=== PATIENT | female | born 1985 | race African-American/Black ===

== ENCOUNTER 2016-07-04 09:46 | Inpatient (IN) | payer MEDICAID, OTHER ==
[~2016-07-04] VITALS: Ht 160 cm; Wt 71.6 kg
[~2016-07-04 09:46] MED LIST: CEPH-460 PO
[2016-07-04 09:48] VITALS: BP 132/90; PULSE 74; RESP 16; TEMP 97.7; O2SAT 100
[2016-07-04 10:53] VITALS: O2SAT 100
[2016-07-04 11:04] LABS: AUTOMATED NEUTROPHIL # 4.5 TH/MM3 (1.8-7.7); BASOPHIL % 0.5 % (0.0-2.0); EOSINOPHIL % 0.6 % (0.0-4.0); HEMO FLAGS DIFF FINAL; LYMPH % 24.5 % (9.0-44.0); LYMPHOCYTE # 1.7 TH/MM3 (1.0-4.8); MEAN CELL VOLUME 90.4 FL (80.0-100.0); MEAN CORPUSCULAR HGB CONC 34.3 % (32.0-36.0); MONO % 8.6 % (0.0-8.0); NEUT % 65.8 % (16.0-70.0); PLATELET COUNT 205 TH/MM3 (150-450); RED BLOOD COUNT 3.98 MIL/MM3 (4.00-5.30); RED CELL DISTRIBUTION WIDTH 13.6 % (11.6-17.2); WHITE BLOOD COUNT 6.8 TH/MM3 (4.0-11.0)
[2016-07-04 11:09] LABS: BLOOD, URINE MOD (NEG); CALCIUM OXALATE CRYSTALS,URINE RARE /hpf; COMMENT (UR) CULT NOT INDICATED; CULTURE IF INDICATED CULT NOT INDICATED; GLUCOSE,URINE NEG (NEG); KETONE, URINE NEG (NEG); MUCUS URINE MOD /lpf (OCC); NITRITE,URINE NEG (NEG); PH, URINE 6.5 (5.0-8.5); SQUAMOUS EPITHELIAL CELL URINE 2 /hpf (0-5); URINE COLOR YELLOW (YELLW/STRAW)
--- NOTE | 2016-07-04 11:09 | PD ---
HPI Chief Complaint: Abdominal Pain Time Seen by Provider: 10:33 Travel History International Travel<30 days: No Contact w/Intl Traveler<30days: No Traveled to known affect area: No History of Present Illness HPI 30-year-old female complains of abdominal pain. Patient states that the pain started a week ago. Patient states the pain cramping pain diffuse over the abdomen worse on left upper quadrant of the abdomen. Patient denies any pain radiation. Patient denies any nausea vomiting diarrhea. Patient has history of recurrent pancreatitis. Patient denies any headache. Patient denies any chest pain or shortness of breath. Patient denies any dysuria or frequency. Patient denies any fever chills. PFSH Past Medical History Hx Anticoagulant Therapy: No Cancer: No Cardiovascular Problems: No Chemotherapy: No Cerebrovascular Accident: No Diabetes: No Diminished Hearing: No Endocrine: No Gastrointestinal Disorders: No GERD: Yes Genitourinary: No Immune Disorder: No Musculoskeletal: No Neurologic: No Psychiatric: No Reproductive: No Respiratory: No Migraines: Yes Pancreatitis: Yes Tetanus Vaccination: < 5 Years Influenza Vaccination: No ?: Unknown LMP: spotting a few weeks ago : 2 Para: 2 Miscarriage: 0 Past Surgical History Section: Yes (x1) Gynecologic Surgery: Yes (LEEP/cervical biopsy) Hysterectomy: No Other Surgery: No Social History Alcohol Use: No Tobacco Use: No Substance Use: No Allergies-Medications (Allergen,Severity, Reaction): Coded Allergies: No Known Allergies (Unverified , 07/04/16) Reported Meds & Prescriptions Reported Meds & Active Scripts Active No Active Prescriptions or Reported Medications Review of Systems General / Constitutional: No: Fever Eyes: No: Visual changes HENT: No: Headaches Cardiovascular: No: Chest Pain or Discomfort Respiratory: No: Shortness of Breath Gastrointestinal: Positive: Abdominal Pain Genitourinary: No: Dysuria Musculoskeletal: No: Pain Skin: No Rash Neurologic: No: Weakness Psychiatric: No: Depression Endocrine: No: Polydipsia Hematologic/Lymphatic: No: Easy Bruising Physical Exam Narrative GENERAL: Well-nourished, well-developed patient. SKIN: Warm and dry. HEAD: Normocephalic. EYES: No scleral icterus. No injection or drainage. NECK: Supple, trachea midline. No JVD or lymphadenopathy. CARDIOVASCULAR: Regular rate and rhythm without murmurs, gallops, or rubs. RESPIRATORY: Breath sounds equal bilaterally. No accessory muscle use. GASTROINTESTINAL: Abdomen soft, nondistended. Patient has mild diffuse tenderness over the abdomen and epigastric area. No rebound tenderness. No mass. MUSCULOSKELETAL: No cyanosis, or edema. BACK: Nontender without obvious deformity. No CVA tenderness. Neurologic exam normal. Data Data Last Documented VS Vital Signs Date Time Temp Pulse Resp B/P Pulse Ox O2 Delivery O2 Flow Rate FiO2 07/04/16 12:59 71 15 117/74 100 Room Air 07/04/16 09:48 97.7 Orders Complete Blood Count With Diff (07/04/16 10:44) Comprehensive Metabolic Panel (07/04/16 10:44) Lipase (07/04/16 10:44) Urinalysis - C+S If Indicated (07/04/16 10:44) Iv Access Insert/Monitor (07/04/16 10:44) Ecg Monitoring (07/04/16 10:44) Oximetry (07/04/16 10:44) Ed Urine Pregnancytest Poc (07/04/16 10:44) Ct Abd/Pel W Iv Contrast(Rout) (07/04/16 11:07) Pantoprazole Inj (Protonix Inj) (07/04/16 11:15) Sodium Chlor 0.9% 1000 Ml Inj (Ns 1000 M (07/04/16 11:15) Iohexol 350 Inj (Omnipaque 350 Inj) (07/04/16 12:16) Labs Laboratory Tests Test 07/04/16 10:50 White Blood Count 6.8 TH/MM3 Red Blood Count 3.98 MIL/MM3 Hemoglobin 12.3 GM/DL Hematocrit 36.0 % Mean Corpuscular Volume 90.4 FL Mean Corpuscular Hemoglobin 31.0 PG Mean Corpuscular Hemoglobin 34.3 % Concent Red Cell Distribution Width 13.6 % Platelet Count 205 TH/MM3 Mean Platelet Volume 9.3 FL Neutrophils (%) (Auto) 65.8 % Lymphocytes (%) (Auto) 24.5 % Monocytes (%) (Auto) 8.6 % Eosinophils (%) (Auto) 0.6 % Basophils (%) (Auto) 0.5 % Neutrophils # (Auto) 4.5 TH/MM3 Lymphocytes # (Auto) 1.7 TH/MM3 Monocytes # (Auto) 0.6 TH/MM3 Eosinophils # (Auto) 0.0 TH/MM3 Basophils # (Auto) 0.0 TH/MM3 CBC Comment DIFF FINAL Differential Comment Urine Color YELLOW Urine Turbidity CLEAR Urine pH 6.5 Urine Specific [place] 1.018 Urine Protein TRACE mg/dL Urine Glucose (UA) NEG mg/dL Urine Ketones NEG mg/dL Urine Occult Blood MOD Urine Nitrite NEG Urine Bilirubin NEG Urine Urobilinogen LESS THAN 2.0 MG/DL Urine Leukocyte Esterase NEG Urine RBC 36 /hpf Urine WBC 2 /hpf Urine Squamous Epithelial 2 /hpf Cells Urine Calcium Oxalate Crystals RARE /hpf Urine Mucus MOD /lpf Microscopic Urinalysis Comment CULT NOT INDICATED Sodium Level 138 MEQ/L Potassium Level 3.3 MEQ/L Chloride Level 101 MEQ/L Carbon Dioxide Level 31.9 MEQ/L Anion Gap 5 MEQ/L Blood Urea Nitrogen 6 MG/DL Creatinine 0.87 MG/DL Estimat Glomerular Filtration 92 ML/MIN Rate Random Glucose 99 MG/DL Calcium Level 8.8 MG/DL Total Bilirubin 0.3 MG/DL Aspartate Amino Transf 26 U/L (AST/SGOT) Alanine Aminotransferase 34 U/L (ALT/SGPT) Alkaline Phosphatase 80 U/L Total Protein 8.0 GM/DL Albumin 3.8 GM/DL Lipase 541 U/L MDM Medical Decision Making Medical Screen Exam Complete: Yes Emergency Medical Condition: Yes Interpretation(s) Last Impressions Abdomen/Pelvis CT 07/04/16 1107 Signed Impressions: Service Date/Time: July 12:00 - CONCLUSION: 1. The exam demonstrates a 5.4 x 6 cm thickwalled cyst within the tail of the pancreas most consistent with pseudocyst. This has moderately increased in size compared to previous exam dated 12/23/14. 2. 2.5 cm simple cyst in the upper pole of the left in a slightly larger when compared to previous study. Javad Givens MD 14 11 PM. CBC within normal limit. Potassium 3.3. Lipase 541. UA negative. Differential Diagnosis Differential diagnosis including gastritis, PUD, pancreatitis, cholecystitis, colitis, UTI, pyelonephritis. Narrative Course 30-year-old female with abdominal pain especially left upper quadrant abdominal pain. History of recurrent pancreatitis. Diagnosis Primary Impression: Pancreatitis Qualified Code: K86.1 - Chronic pancreatitis, unspecified pancreatitis type Additional Impression: Pancreatic pseudocyst Scripts No Active Prescriptions or Reported Meds Gilmar Amaro MD Jul 04, 2016 11:09
[2016-07-04] MEDS ORDERED: SODIUM CHLOR 0.9% 1000 ML INJ 1,000 ML IV SCH (11:15)
[2016-07-04] MEDS ORDERED: PANTOPRAZOLE SODIUM 40 MG VIAL IV PUSH ONE (11:15)
[2016-07-04 11:39] LABS: ALKALINE PHOSPHATASE 80 U/L (45-117); ALT (GPT) 34 U/L (10-53); ANION GAP 5 MEQ/L (5-15); AST (GOT) 26 U/L (15-37); BICARBONATE 31.9 MEQ/L (21.0-32.0); BLOOD UREA NITROGEN 6 MG/DL (7-18); CHLORIDE 101 MEQ/L (98-107); GLOMERULAR FILTRATION RATE 92 ML/MIN (>89); POTASSIUM 3.3 MEQ/L (3.5-5.1); SODIUM (NA) 138 MEQ/L (136-145); TOTAL BILIRUBIN ADULT 0.3 MG/DL (0.2-1.0)
[2016-07-04] MEDS ORDERED: IOHEXOL 350 MG/ML 10 ML VIAL (for RAD DIAG) IV ONE (12:16)
--- NOTE | 2016-07-04 12:46 | RADRPT ---
EXAM DATE/TIME: 07/04/2016 12:00 [facility] COMPARISON: CT ABDOMEN & PELVIS W CONTRAST, December 23, 2014, 19:07. INDICATIONS : Left upper quadrant pain, history of pancreatitis IV CONTRAST: 66 cc Omnipaque 350 (iohexol) IV ORAL CONTRAST: No oral contrast ingested. RADIATION DOSE: 9.96 CTDIvol (mGy) MEDICAL HISTORY : Pancreatitis. SURGICAL HISTORY : section. ENCOUNTER: Initial ACUITY: 1 day PAIN SCALE: 6/10 LOCATION: Left upper quadrant TECHNIQUE: Volumetric scanning of the abdomen and pelvis was performed. Using automated exposure control and ad justment of the mA and/or kV according to patient size, radiation dose was kept as low as reasonably achievable to obtain optimal diagnostic quality images. FINDINGS: The limited portion of the lung base visualized is clear. As the appearance of the liver is within normal limits. The spleen is normal in appearance. Examination of the pancreas demonstrates a 5.4 x 6 cm cyst within the tail of the pancreas this is mo derately increased in size since previous dated 12/23/14. This measured 3.9 x 4.3 cm on the prior exam . This is most likely related to previous pancreatitis. The left kidney demonstrates a 2.5 cm simple cyst. It is otherwise normal in appearance. The right ki dney is unremarkable in appearance. There is no free intraperitoneal air. No free intraperitoneal fluid is identified. There is no retrop eritoneal lymphadenopathy. The aorta is normal in caliber. The visualized loops of small and large bowel are unremarkable. Imaging through the pelvis is provided. No iliac or inguinal adenopathy is seen. No free fluid is steve dent within the pelvis. The reproductive organs are intact. The visualized bony structures demonstrate mild degenerative changes but are otherwise intact. CONCLUSION: 1. The exam demonstrates a 5.4 x 6 cm thickwalled cyst within the tail of the pancreas most consisten t with pseudocyst. This has moderately increased in size compared to previous exam dated 12/23/14. 2. 2.5 cm simple cyst in the upper pole of the left in a slightly larger when compared to previous st [facility]. Javad Givens MD on July 04, 2016 at 12:38 Board Certified Radiologist. This report was verified electronically.
[2016-07-04 12:59] VITALS: BP 117/74; PULSE 71; RESP 15; O2SAT 100
[2016-07-04 15:31] VITALS: BP 115/79; PULSE 66; RESP 16; O2SAT 100
[2016-07-04 17:15] VITALS: BP 118/72; PULSE 70; RESP 15; O2SAT 100
[2016-07-04] MEDS ORDERED: HYDROmorphone HCL PF 1 MG/ML VIAL IV PUSH PRN (17:15)
--- NOTE | 2016-07-04 17:24 | HHI.HP ---
[facility] No Primary Care Physician Admission Diagnosis pancreatic pseudocyst. Abdominal pain. Diagnoses: Chief Complaint: Epigastric pain Travel History International Travel<30 Days: No Contact w/Intl Traveler <30 Da: No Traveled to Known Affected Are: No History of Present Illness Patient is a very pleasant 30-year-old female from [place] who came to the hospital because of epigastric pain radiating to the left upper quadrant for about a week now. Patient states history of the same condition be about in 2013 where on evaluation had been pancreatic cyst that [facility]. This time patient states she takes ibuprofen periodically which helped with the pain. Denies any nausea and vomiting. Past 2 days have been having increasing pain. Patient felt that this is "the cyst is getting bigger" and came to the emergency room. On evaluation with an elevated lipase and admitted for further evaluation and management. Review of Systems Constitutional: DENIES: Diaphoretic episodes, Fatigue, Fever, Weight gain, Weight loss, Chills, Dizziness, Change in appetite, Night Sweats Endocrine: DENIES: Abnorml menstrual pattern, Heat/cold intolerance, Polydipsia , Polyuria, Polyphagia Eyes: DENIES: Blurred vision, Diplopia, Eye inflammation, Eye pain, Vision loss , Photosensitivity, Double Vision Ears, nose, mouth, throat: DENIES: Tinnitus, Hearing loss, Vertigo, Nasal discharge, Oral lesions, Throat pain, Hoarseness, Ear Pain, Running Nose, Epistaxis, Sinus Pain, Toothache, Odynophagia Respiratory: DENIES: Apneas, Cough, Snoring, Wheezing, Hemoptysis, Sputum production, Shortness of breath Cardiovascular: DENIES: Chest pain, Palpitations, Syncope, Dyspnea on Exertion , PND, Lower Extremity Edema, Orthopnea, Claudication Gastrointestinal: DENIES: Abdominal pain, Black stools, Bloody stools, Constipation, Diarrhea, Nausea, Vomiting, Difficulty Swallowing, Anorexia Genitourinary: DENIES: Abnormal vaginal bleeding, Dysmenorrhea, Dyspareunia, Sexual dysfunction, Urinary frequency, Urinary incontinence, Urgency, Hematuria , Dysuria, Nocturia, Vaginal discharge Musculoskeletal: DENIES: Joint pain, Muscle aches, Stiffness, Joint Swelling, Back pain, Neck pain Integumentary: DENIES: Abnormal pigmentation, Pruritus, Rash, Nail changes, Breast masses, Breast skin changes, Nipple discharge Hematologic/lymphatic: DENIES: Bruising, Lymphadenopathy Immunologic/allergic: DENIES: Eczema, Urticaria Neurologic: DENIES: Abnormal gait, Headache, Localized weakness, Paresthesias, Seizures, Speech Problems, Tremor, Poor Balance Psychiatric: DENIES: Anxiety, Confusion, Mood changes, Depression, Hallucinations, Agitation, Suicidal Ideation, Homicidal Ideation, Delusions Past Family Social History Past Medical History History of pancreatitis with pancreatic cyst drained in 2014 Past Surgical History Cervical cone biopsy section 2 para 1(1-0-1-1) Reported Medications Ibuprofen when necessary rarely for headaches Allergies: Coded Allergies: No Known Allergies (Unverified , 07/04/16) Family History Noncontributory Social History Denies smoking alcohol or substance abuse Physical Exam Vital Signs Vital Signs Date Time Temp Pulse Resp B/P Pulse Ox O2 Delivery O2 Flow Rate FiO2 07/04/16 17:15 70 15 118/72 100 Room Air 07/04/16 15:31 66 16 115/79 100 Room Air 07/04/16 12:59 71 15 117/74 100 Room Air 07/04/16 10:53 100 Room Air 07/04/16 10:32 16 07/04/16 09:48 97.7 74 16 132/90 100 Room Air Physical Exam GENERAL: This is a well-nourished, well-developed patient, in no apparent distress. SKIN: No rashes, ecchymoses or lesions. Cool and dry. HEAD: Atraumatic. Normocephalic. No temporal or scalp tenderness. EYES: Pupils equal round and reactive. Extraocular motions intact. No scleral icterus. ENT: Nose without bleeding, Throat without erythema, Airway patent. NECK: Trachea midline. No JVD or lymphadenopathy. Supple, nontender, no meningeal signs. CARDIOVASCULAR: Regular rate and rhythm without murmurs, gallops, or rubs. RESPIRATORY: Clear to auscultation. Breath sounds equal bilaterally. No wheezes , rales, or rhonchi. GASTROINTESTINAL: Abdomen soft, tender epigastric and left upper quadrant area, soft good bowel sounds MUSCULOSKELETAL: Extremities without clubbing, cyanosis, or edema. No joint tenderness, effusion, or edema noted. No calf tenderness. Negative Homans sign bilaterally. NEUROLOGICAL: Awake and alert. Cranial nerves II through XII intact. Motor and sensory grossly within normal limits. Five out of 5 muscle strength in all muscle groups. Normal speech. Laboratory Laboratory Tests Test 07/04/16 10:50 White Blood Count 6.8 Red Blood Count 3.98 Hemoglobin 12.3 Hematocrit 36.0 Mean Corpuscular Volume 90.4 Mean Corpuscular Hemoglobin 31.0 Mean Corpuscular Hemoglobin 34.3 Concent Red Cell Distribution Width 13.6 Platelet Count 205 Mean Platelet Volume 9.3 Neutrophils (%) (Auto) 65.8 Lymphocytes (%) (Auto) 24.5 Monocytes (%) (Auto) 8.6 Eosinophils (%) (Auto) 0.6 Basophils (%) (Auto) 0.5 Neutrophils # (Auto) 4.5 Lymphocytes # (Auto) 1.7 Monocytes # (Auto) 0.6 Eosinophils # (Auto) 0.0 Basophils # (Auto) 0.0 CBC Comment DIFF FINAL Differential Comment Urine Color YELLOW Urine Turbidity CLEAR Urine pH 6.5 Urine Specific [place] 1.018 Urine Protein TRACE Urine Glucose (UA) NEG Urine Ketones NEG Urine Occult Blood MOD Urine Nitrite NEG Urine Bilirubin NEG Urine Urobilinogen LESS THAN 2.0 Urine Leukocyte Esterase NEG Urine RBC 36 Urine WBC 2 Urine Squamous Epithelial 2 Cells Urine Calcium Oxalate Crystals RARE Urine Mucus MOD Microscopic Urinalysis Comment CULT NOT INDICATED Sodium Level 138 Potassium Level 3.3 Chloride Level 101 Carbon Dioxide Level 31.9 Anion Gap 5 Blood Urea Nitrogen 6 Creatinine 0.87 Estimat Glomerular Filtration 92 Rate Random Glucose 99 Calcium Level 8.8 Total Bilirubin 0.3 Aspartate Amino Transf 26 (AST/SGOT) Alanine Aminotransferase 34 (ALT/SGPT) Alkaline Phosphatase 80 Total Protein 8.0 Albumin 3.8 Lipase 541 Result Diagram: 07/04/16 1050 07/04/16 1050 Imaging Last Impressions Abdomen/Pelvis CT 07/04/16 1107 Signed Impressions: Service Date/Time: July 12:00 - CONCLUSION: 1. The exam demonstrates a 5.4 x 6 cm thickwalled cyst within the tail of the pancreas most consistent with pseudocyst. This has moderately increased in size compared to previous exam dated 12/23/14. 2. 2.5 cm simple cyst in the upper pole of the left in a slightly larger when compared to previous study. Javad Givens MD Assessment and Plan Assessment and Plan 30-year-old female presenting with epigastric pain with no history of pancreatic pseudocyst Acute pancreatitis Keep nothing by mouth. continue on IV fluids Pancreatic cyst - recurrent compared with previous exam larger. Will consult radiology for 4 ultrasound-guided drainage of the cyst Hypokalemia. Incorporate potassium and IV fluids PPI for GI prophylaxis Discussed Condition With Patient Albina Bagley MD Jul 04, 2016 17:24
[2016-07-04] MEDS ORDERED: POTASSIUM CHLOR 10 MEQ PREMIX 100 ML IV ONE (17:30)
[2016-07-04 20:00] VITALS: BP 102/62; PULSE 60; RESP 20; TEMP 97.6; O2SAT 98
[2016-07-04] MEDS ORDERED: ACETAMINOPHEN 325 MG TAB PO ONE (22:00)
[2016-07-05] VITALS: BP 96/52; PULSE 74; RESP 20; TEMP 96.1; O2SAT 99
[2016-07-05] MEDS: D5-NS + KCL 20 MEQ INJ 1,000 ML IV SCH ×2 (01:15→11:29)
[2016-07-05 05:22] LABS: ANION GAP 8 MEQ/L (5-15); BICARBONATE 27.5 MEQ/L (21.0-32.0); BLOOD UREA NITROGEN 6 MG/DL (7-18); CHLORIDE 106 MEQ/L (98-107); GLOMERULAR FILTRATION RATE 114 ML/MIN (>89); POTASSIUM 3.5 MEQ/L (3.5-5.1); SODIUM (NA) 141 MEQ/L (136-145)
[2016-07-05 05:31] LABS: BHCG SCREEN QUALITATIVE LESS THAN 1 MIU/ML (0-5)
[2016-07-05 08:00] VITALS: BP 112/75; PULSE 72; RESP 19; TEMP 97.5; O2SAT 98
[2016-07-05 08:52] LABS: APTT (PATIENT) 26.9 SEC (24.3-30.1); INTERNATIONAL NORMALIZED RATIO 1.1 RATIO; PROTHROMBIN TIME - PATIENT 11.7 SEC (9.8-11.6)
--- NOTE | 2016-07-05 09:54 | HHI.PR ---
Subjective Remarks no abdominal pain, nausea or vomiting Objective Vitals Vital Signs Date Time Temp Pulse Resp B/P Pulse Ox O2 Delivery O2 Flow Rate FiO2 07/05/16 08:00 97.5 72 19 112/75 98 07/05/16 00:00 96.1 74 20 96/52 99 07/04/16 20:00 97.6 60 20 102/62 98 07/04/16 17:15 70 15 118/72 100 Room Air 07/04/16 15:31 66 16 115/79 100 Room Air 07/04/16 12:59 71 15 117/74 100 Room Air 07/04/16 10:53 100 Room Air 07/04/16 10:32 16 I/O 07/04/16 07/04/16 07/04/16 07/05/16 07/05/16 07/05/16 07:00 15:00 23:00 07:00 15:00 23:00 Intake Total 770 ml 1000 ml 0 ml Output Total 800 ml Balance 770 ml 200 ml 0 ml Intake Oral 0 ml 0 ml 0 ml IV Total 770 ml 1000 ml Output Urine Total 800 ml # Voids 1 # Bowel Movements 0 0 Result Diagram: 07/04/16 1050 07/05/16 0435 Imaging Last Impressions Abdomen/Pelvis CT 07/04/16 1107 Signed Impressions: Service Date/Time: July 12:00 - CONCLUSION: 1. The exam demonstrates a 5.4 x 6 cm thickwalled cyst within the tail of the pancreas most consistent with pseudocyst. This has moderately increased in size compared to previous exam dated 12/23/14. 2. 2.5 cm simple cyst in the upper pole of the left in a slightly larger when compared to previous study. Javad Givens MD Objective Remarks awake and alert, NAD anicteric lungs clear regular rhythm abdomen soft, nontender, good bowel sounds extremities no edema A/P Assessment and Plan 30-year-old female presenting with epigastric pain with no history of pancreatic pseudocyst Acute pancreatitis - lipase improved not requiring any pain meds at all Pancreatic cyst - recurrent compared with previous exam larger. consult [facility] ? marsupialization of pseudocyst- he seems to recall seeing Dr. Grossman in the past but unsure Hypokalemia. Incorporate potassium and IV fluids. FF PPI for GI prophylaxis Up and ambulating DC this pm if continues to do well Diet as tolerated ACtivity as tolerated Meds- tylenol prn for pain OP ff up with GI- Dr. Grossman in 10-14 days for ff up Albina Bagley MD Jul 05, 2016 09:54
[2016-07-05] MEDS ORDERED: POTASSIUM CHLOR 10 MEQ PREMIX 100 ML IV ONE (10:15)
[2016-07-05] MEDS ORDERED: PANTOPRAZOLE SODIUM 40 MG VIAL IV PUSH SCH (11:00)
[2016-07-05 12:00] VITALS: BP 110/73; PULSE 72; RESP 18; TEMP 97.8; O2SAT 99
[2016-07-05 16:00] VITALS: PULSE 70; RESP 18; TEMP 96.9; O2SAT 100
--- NOTE | 2016-07-05 16:39 | PD.CONS ---
HPI History of Present Illness This is a 30 year old female with known history of recurrent pancreatitis presents again with upper abdominal pain that started suddenly and on admission she was found to have elevated lipase and she was also noted to have an enlarging pancreatic pseudocyst at the tail end of the pancreas she has had this cyst in the past and supposedly this was drained in an outpatient facility and now it looks like it's about 6 cm with a thickened wall but no evidence at this point of any infection the patient is feeling much better today 's compared to when she came in she does admit to eating fatty food she denies any family history of pancreatitis she's had multiple admissions in the past with recurrent pancreatitis and all imaging is free of any gallstones or gallbladder disease the patient denies any fever or chills she does report to me that she has a 5-month-old baby that is being cared for by her friend but even this friend is needing to go to work and she is in a [facility] Past Medical History History of pancreatitis with pancreatic cyst drained in 2013 Past Surgical History Cervical cone biopsy section 2 para 1(1-0-1-1) Coded Allergies: No Known Allergies (Unverified , 07/04/16) Medications She rarely uses Tylenol and ibuprofen for headaches Current Medications Pantoprazole Sodium 40 mg 40 mg ONCE ONCE IV PUSH Last administered on 11:17; Start 07/04/16 at 11:15; Stop 07/04/16 at 11:16; Status DC Sodium Chloride (NS 1000 ml Inj) 1,000 ml @ 125 mls/hr Q8H IV Last administered on 07/04/16 11:17; Start 07/04/16 at 11:15; Stop 07/04/16 at 17:28; Status DC Iohexol 66 ml 66 ml STK-MED ONCE IV ; Start 07/04/16 at 12:16; Stop 07/04/16 at 12 :17; Status DC Potassium Chloride/Dextrose/ Sod Cl (D5-NS + KCl 20 Meq Inj) 1,000 ml @ 125 mls /hr Q8H IV Last administered on 07/05/16 11:29; Start 07/04/16 at 17:15 Hydromorphone HCl (Dilaudid Pf Inj) 1 mg Q4H PRN IV PUSH EPIGASRIC PAIN; Start 07/04/16 at 17:15 Pantoprazole Sodium 40 mg 40 mg Q24H IV PUSH Last administered on 07/05/16 11: 29; Start 07/05/16 at 11:00 Potassium Chloride (KCl 10 Meq Premix Inj) 100 ml @ 100 mls/hr BOLUS ONCE IV Last administered on 07/04/16 17:57; Start 07/04/16 at 17:30; Stop 07/04/16 at 18: 29; Status DC Acetaminophen 650 mg 650 mg ONCE ONCE PO Last administered on 07/04/16 22:10; Start 07/04/16 at 22:00; Stop 07/04/16 at 22:01; Status DC Potassium Chloride (KCl 10 Meq Premix Inj) 100 ml @ 100 mls/hr BOLUS ONCE IV Last administered on 07/05/16 11:29; Start 07/05/16 at 10:15; Stop 07/05/16 at 11: 14; Status DC Family History Noncontributory Social History Denies smoking alcohol or substance abuse Review of Systems ROS Review of systems Patient denies any headache dizziness blurry vision, denies any chest pain shortness of breath cough fever chills, Denies any palpitations or fatigue denies any polyuria dysuria hematuria, denies any numbness tingling or weakness, denies any skin rash pruritus or jaundice, denies any easy bruising or bleeding tendency, denies any recent change in mood GI Exam Vitals I&O Vital Signs Date Time Temp Pulse Resp B/P Pulse Ox O2 Delivery O2 Flow Rate FiO2 07/05/16 16:00 96.9 70 18 100 07/05/16 12:00 97.8 72 18 110/73 99 07/05/16 08:00 97.5 72 19 112/75 98 07/05/16 00:00 96.1 74 20 96/52 99 07/04/16 20:00 97.6 60 20 102/62 98 07/04/16 17:15 70 15 118/72 100 Room Air I/O 07/04/16 07/04/16 07/04/16 07/05/16 07/05/16 07/05/16 07:00 15:00 23:00 07:00 15:00 23:00 Intake Total 770 ml 1000 ml 0 ml Output Total 800 ml 500 ml Balance 770 ml 200 ml -500 ml Intake Oral 0 ml 0 ml 0 ml IV Total 770 ml 1000 ml Output Urine Total 800 ml 500 ml # Voids 1 # Bowel Movements 0 0 0 Imaging Last Impressions Abdomen/Pelvis CT 07/04/16 1107 Signed Impressions: Service Date/Time: July 12:00 - CONCLUSION: 1. The exam demonstrates a 5.4 x 6 cm thickwalled cyst within the tail of the pancreas most consistent with pseudocyst. This has moderately increased in size compared to previous exam dated 12/23/14. 2. 2.5 cm simple cyst in the upper pole of the left in a slightly larger when compared to previous study. Javad Givens MD Laboratory Test 07/05/16 07/05/16 04:35 08:16 Sodium Level 141 MEQ/L Potassium Level 3.5 MEQ/L Chloride Level 106 MEQ/L Carbon Dioxide Level 27.5 MEQ/L Anion Gap 8 MEQ/L Blood Urea Nitrogen 6 MG/DL Creatinine 0.72 MG/DL Estimat Glomerular Filtration 114 ML/MIN Rate Random Glucose 96 MG/DL Calcium Level 8.7 MG/DL Lipase 241 U/L Beta HCG, Qualitative LESS THAN 1 MIU/ML Prothrombin Time 11.7 SEC Prothromb Time International 1.1 RATIO Ratio Activated Partial 26.9 SEC Thromboplast Time Physical Examination HEENT: Pupils round and reactive to light; normocephalic; atraumatic; no jaundice. Throat is clear. NECK: Neck is supple, no JVD, no lymphadenopathy. CHEST: Chest is clear to auscultation and percussion. CARDIAC: Regular rate and rhythm with no murmur gallop or rubs. ABDOMEN: Soft, nondistended, mild upper abdominal tenderness no rebound or guarding; no hepatosplenomegaly; bowel sounds are present in all four quadrants. EXTREMITIES: No clubbing, cyanosis, or edema. SKIN: Normal; no rash; no jaundice. GENERAL ACTIVITIES THERAPIST: No focal deficits; alert and oriented times three. Assessment and Plan Plan Resolving acute pancreatitis current labs are normal Pancreatic pseudocyst No symptoms of obstruction from the pancreatic cyst No need for drainage at this point Patient advised to follow precautions with diet Patient may use pain meds as needed for pain control Follow-up with GI in 2-4 weeks Patient may be discharged from a GI standpoint Shola Grossman MD Jul 05, 2016 16:39
[2016-07-05] MEDS ORDERED: TYLE325T PO (16:50)
[2016-07-05] MEDS ORDERED: ACETAMINOPHEN 325 MG TAB PO PRN (19:30)
== END 2016-07-05 19:49 | disposition home or self-care (01) | DRG 439 ==
LOC: NEPB 09:46 → NEDA 16:02 → N07B 19:01 → OBSVTOIN 07-05 15:55
PROVIDERS: ADMIT Internal Medicine; ATTEND Internal Medicine
DX: K85.90 Acute pancreatitis without necrosis or infection, unspecified (principal); K86.2 Cyst of pancreas; E87.6 Hypokalemia; K21.9 Gastro-esophageal reflux disease without esophagitis; K86.1 Other chronic pancreatitis
CPT/HCPCS: 74177; 80048; 80053; 81001; 83690; 84703; 85025; 85610; 85730; 96361; 96374; C9113; G0378; J3480; J7030; Q9967

== ENCOUNTER 2016-07-07 23:01 | Emergency (ER) | payer MEDICAID, OTHER ==
[~2016-07-07] VITALS: Ht 162.6 cm; Wt 71.0 kg
[~2016-07-07 23:01] MED LIST changes: -CEPH-460 PO; +TYLE325T PO
[2016-07-07 23:02] VITALS: BP 122/80; PULSE 88; RESP 18; TEMP 99; O2SAT 100
[2016-07-07] MEDS ORDERED: HYDROmorphone HCL PF 1 MG/ML VIAL IV PUSH ONE (23:30)
[2016-07-07] MEDS ORDERED: SODIUM CHLOR 0.9% 1000 ML INJ 1,000 ML IV ONE (23:30)
[2016-07-07] MEDS ORDERED: ONDANSETRON HCL 4 MG/2 ML VIAL IV PUSH ONE (23:30)
[2016-07-08 00:01] LABS: ALKALINE PHOSPHATASE 70 U/L (45-117); ALT (GPT) 36 U/L (10-53); ANION GAP 8 MEQ/L (5-15); AST (GOT) 26 U/L (15-37); BICARBONATE 28.7 MEQ/L (21.0-32.0); BLOOD UREA NITROGEN 10 MG/DL (7-18); CHLORIDE 101 MEQ/L (98-107); GLOMERULAR FILTRATION RATE 85 ML/MIN (>89); POTASSIUM 3.4 MEQ/L (3.5-5.1); SODIUM (NA) 138 MEQ/L (136-145); TOTAL BILIRUBIN ADULT 0.4 MG/DL (0.2-1.0)
--- NOTE | 2016-07-08 00:03 | PD ---
HPI Chief Complaint: Abdominal Pain Time Seen by Provider: 23:19 Travel History International Travel<30 days: No Contact w/Intl Traveler<30days: No Traveled to known affect area: No History of Present Illness HPI This is a 30-year-old female with a history of chronic pancreatitis, who presents today with complaints of abdominal pain with associated nausea vomiting. Patient states she was discharged from the hospital on Friday and was not given a prescription for pain medication. She states that the pain started back today. She denies any fevers, chills. She denies any other symptoms. She did state that she had fruit today despite being told to have clear liquid diet. There are no other complaints time my examination. PFSH Past Medical History Hx Anticoagulant Therapy: No Cancer: No Cardiovascular Problems: No Chemotherapy: No Cerebrovascular Accident: No Diabetes: No Diminished Hearing: No Endocrine: No Gastrointestinal Disorders: No GERD: Yes Genitourinary: No Immune Disorder: No Musculoskeletal: No Neurologic: No Psychiatric: No Reproductive: No Respiratory: No Migraines: Yes Pancreatitis: Yes ?: Unknown : 2 Para: 2 Miscarriage: 0 Past Surgical History Section: Yes (x1) Gynecologic Surgery: Yes (LEEP/cervical biopsy) Hysterectomy: No Other Surgery: No Social History Alcohol Use: No Tobacco Use: No Substance Use: No Allergies-Medications (Allergen,Severity, Reaction): Coded Allergies: No Known Allergies (Unverified , 07/04/16) Reported Meds & Prescriptions Reported Meds & Active Scripts Active Tylenol (Acetaminophen) 325 Mg Tab 650 Mg PO Q6H PRN 10 Days Review of Systems General / Constitutional: No: Fever, Chills HENT: No: Headaches, Neck Pain Cardiovascular: No: Chest Pain or Discomfort Respiratory: No: Cough, Shortness of Breath Gastrointestinal: Positive: Nausea, Vomiting, Abdominal Pain (epigastric) Genitourinary: No: Dysuria, Nocturia Musculoskeletal: No: Weakness, Pain Neurologic: No: Weakness, Headache Physical Exam Narrative GENERAL: Well-nourished, well-developed patient. SKIN: Warm and dry. HEAD: Normocephalic/atraumatic. EYES: No scleral icterus. No injection or drainage. NECK: Supple, trachea midline. No JVD or lymphadenopathy. CARDIOVASCULAR: Regular rate and rhythm without murmurs, gallops, or rubs. RESPIRATORY: Breath sounds equal bilaterally. No accessory muscle use. GASTROINTESTINAL: Abdomen soft, nondistended. The patient has subjective tenderness in her epigastric area. There is no rebound or guarding on my examination. MUSCULOSKELETAL: No cyanosis, or edema. NEUROLOGICAL: Awake and alert. Cranial nerves II through XII intact. Motor grossly within normal limits. Five out of 5 muscle strength in all muscle groups. Normal speech. Data Data Last Documented VS Vital Signs Date Time Temp Pulse Resp B/P Pulse Ox O2 Delivery O2 Flow Rate FiO2 07/07/16 23:02 99.0 88 18 122/80 100 Orders Comprehensive Metabolic Panel (07/07/16 23:19) Lipase (07/07/16 23:19) Sodium Chlor 0.9% 1000 Ml Inj (Ns 1000 M (07/07/16 23:30) Ondansetron Inj (Zofran Inj) (07/07/16 23:30) Hydromorphone Pf Inj (Dilaudid Pf Inj) (07/07/16 23:30) Labs Laboratory Tests Test 07/07/16 23:24 Sodium Level 138 MEQ/L Potassium Level 3.4 MEQ/L Chloride Level 101 MEQ/L Carbon Dioxide Level 28.7 MEQ/L Anion Gap 8 MEQ/L Blood Urea Nitrogen 10 MG/DL Creatinine 0.93 MG/DL Estimat Glomerular Filtration 85 ML/MIN Rate Random Glucose 93 MG/DL Calcium Level 9.1 MG/DL Total Bilirubin 0.4 MG/DL Aspartate Amino Transf 26 U/L (AST/SGOT) Alanine Aminotransferase 36 U/L (ALT/SGPT) Alkaline Phosphatase 70 U/L Total Protein 8.1 GM/DL Albumin 4.0 GM/DL Lipase 560 U/L MDM Medical Decision Making Medical Screen Exam Complete: Yes Emergency Medical Condition: Yes Differential Diagnosis Acute on chronic pancreatitis versus abdominal discomfort versus gastroenteritis Narrative Course 30-year-old female with history of chronic pancreatitis, who presents today with complaints of abdominal pain with associated nausea vomiting. The patient states that she was discharged yesterday however was not given any pain medication. She denies any fevers, chills. She states that she ate fruit today and knows that she should've been on a clear liquid diet. Lab tests show a lipase of 500. This is up from her 250 lipase 4 and she was discharged. The patient's been given one dose of IV pain medication and 1 L of IV fluids and feels much improved. Given the subtle discharge her she is instructed to keep to her clear liquid diet and advance as tolerated. She is instructed to return if she does any worsening pain, fevers chills, or any other reason that concerned her. Diagnosis Primary Impression: exacerbation of chronic pancreatitis Additional Instructions: Clear liquid advance as tolerated. Scripts Hydrocodone-Acetaminophen (Lortab)5-325 Mg Tab1 Tab PO Q6H PRN (PAIN) #10 TAB Ref 0 Prov:Chalino Jones MD 07/08/16 Disposition: 01 DISCHARGE HOME Condition: Stable Chalino Jones MD Jul 08, 2016 00:03
[2016-07-08] MEDS ORDERED: HYDR-3533 PO (01:03)
[2016-07-08 01:24] VITALS: BP 127/88
== END 2016-07-08 01:39 | disposition home or self-care (01) ==
LOC: NEPE 23:01
DX: K86.1 Other chronic pancreatitis (principal); R10.9 Unspecified abdominal pain; R11.2 Nausea with vomiting, unspecified
CPT/HCPCS: 80053; 83690; 96361; 96374; 96375; 99284; J1170; J2405; J7030

== ENCOUNTER 2016-08-21 16:43 | Emergency (ER) | payer MEDICAID ==
[~2016-08-21] VITALS: Ht 160 cm; Wt 66.0 kg
[~2016-08-21 16:43] MED LIST changes: +HYDR-3533 PO
[2016-08-21 16:44] VITALS: BP 129/88; PULSE 76; RESP 20; TEMP 98.6; O2SAT 99
--- NOTE | 2016-08-21 16:57 | PD ---
Physical Exam Date Seen by Provider: Aug 21, 2016 Time Seen by Provider: 16:53 Narrative Pt is a 30 year old female presenting to the ED with c/o abdominal pain. Symptoms started 3 days ago. She rates her pain 4/10. Pt states she has had loss of appetite, nausea. She has a history of pancreatitis. Her pain is in the LUQ and radiates to her back. Pt denies any other complaints. Pt took a Lortab that she had left over from the last time which she said alleviated her pain. LMP in July. VSS, awaiting bed placement. Data Data Last Documented VS Vital Signs Date Time Temp Pulse Resp B/P Pulse Ox O2 Delivery O2 Flow Rate FiO2 08/21/16 16:44 98.6 76 20 129/88 99 Room Air [facility] Supervised Visit with LINDSAY: Francisca Littlejohn Aug 21, 2016 16:57
--- NOTE | 2016-08-21 18:08 | PD ---
HPI Chief Complaint: Abdominal Pain Time Seen by Provider: 18:05 Travel History International Travel<30 days: No Contact w/Intl Traveler<30days: No Traveled to known affect area: No History of Present Illness HPI 30-year-old female presents to the emergency department for evaluation of abdominal pain that started 3 days ago. She reports epigastric and left upper quadrant abdominal pain. She does report a history of chronic pancreatitis and states this pain is consistent with her chronic pancreatitis. Patient reports nausea and decreased appetite. No vomiting. No diarrhea. She denies any fevers or chills. Patient does report some dysuria. She is unsure she could be . Patient denies any other complaints at this time. PFSH Past Medical History Hx Anticoagulant Therapy: No Cancer: No Cardiovascular Problems: No Chemotherapy: No Cerebrovascular Accident: No Diabetes: No Diminished Hearing: No Endocrine: No Gastrointestinal Disorders: No GERD: Yes Genitourinary: No Immune Disorder: No Musculoskeletal: No Neurologic: No Psychiatric: No Reproductive: No Respiratory: No Migraines: Yes Pancreatitis: Yes ?: Unknown LMP: JULY- NOT SURE OF DATE : 2 Para: 2 Miscarriage: 0 Past Surgical History Section: Yes (x1) Gynecologic Surgery: Yes (LEEP/cervical biopsy) Hysterectomy: No Other Surgery: No Social History Alcohol Use: No Tobacco Use: No Substance Use: No Allergies-Medications (Allergen,Severity, Reaction): Coded Allergies: No Known Allergies (Unverified , 07/04/16) Reported Meds & Prescriptions Reported Meds & Active Scripts Active Lortab (Hydrocodone-Acetaminophen) 5-325 Mg Tab 1 Tab PO Q6H PRN Tylenol (Acetaminophen) 325 Mg Tab 650 Mg PO Q6H PRN 10 Days Review of Systems Except as stated in HPI: all other systems reviewed are Neg Physical Exam Narrative GENERAL: Well-nourished, well-developed female patient, ambulatory. Afebrile. SKIN: Focused skin assessment warm/dry. HEAD: Normocephalic. Atraumatic. EYES: No scleral icterus. No injection or drainage. NECK: Supple, trachea midline. No JVD or lymphadenopathy. CARDIOVASCULAR: Regular rate and rhythm without murmurs, gallops, or rubs. RESPIRATORY: Breath sounds equal bilaterally. No accessory muscle use. Lungs sounds are clear to auscultation. GASTROINTESTINAL: Abdomen soft and nondistended. Patient has tenderness over epigastric and left upper quadrant. MUSCULOSKELETAL: No cyanosis, or edema. BACK: Nontender without obvious deformity. No CVA tenderness. Data Data Last Documented VS Vital Signs Date Time Temp Pulse Resp B/P Pulse Ox O2 Delivery O2 Flow Rate FiO2 08/21/16 16:44 98.6 76 20 129/88 99 Room Air Orders Complete Blood Count With Diff (08/21/16 18:02) Comprehensive Metabolic Panel (08/21/16 18:02) Lipase (08/21/16 18:02) Urinalysis - C+S If Indicated (08/21/16 18:02) Iv Access Insert/Monitor (08/21/16 18:02) Ecg Monitoring (08/21/16 18:02) Oximetry (08/21/16 18:02) Sodium Chloride 0.9% Flush (Ns Flush) (08/21/16 18:15) Ed Urine Pregnancytest Poc (08/21/16 18:02) Sodium Chlor 0.9% 1000 Ml Inj (Ns 1000 M (08/21/16 18:15) Ondansetron Inj (Zofran Inj) (08/21/16 18:15) Morphine Inj (Morphine Inj) (08/21/16 18:15) Potassium Chloride (Kcl) (08/21/16 19:45) Labs Laboratory Tests Test 08/21/16 18:12 White Blood Count 7.0 TH/MM3 Red Blood Count 4.04 MIL/MM3 Hemoglobin 12.3 GM/DL Hematocrit 37.3 % Mean Corpuscular Volume 92.2 FL Mean Corpuscular Hemoglobin 30.5 PG Mean Corpuscular Hemoglobin 33.1 % Concent Red Cell Distribution Width 13.3 % Platelet Count 194 TH/MM3 Mean Platelet Volume 8.9 FL Neutrophils (%) (Auto) 64.3 % Lymphocytes (%) (Auto) 26.1 % Monocytes (%) (Auto) 8.7 % Eosinophils (%) (Auto) 0.3 % Basophils (%) (Auto) 0.6 % Neutrophils # (Auto) 4.5 TH/MM3 Lymphocytes # (Auto) 1.8 TH/MM3 Monocytes # (Auto) 0.6 TH/MM3 Eosinophils # (Auto) 0.0 TH/MM3 Basophils # (Auto) 0.0 TH/MM3 CBC Comment DIFF FINAL Differential Comment Urine Color YELLOW Urine Turbidity CLEAR Urine pH 6.0 Urine Specific [place] 1.008 Urine Protein TRACE mg/dL Urine Glucose (UA) NEG mg/dL Urine Ketones NEG mg/dL Urine Occult Blood MOD Urine Nitrite NEG Urine Bilirubin NEG Urine Urobilinogen LESS THAN 2.0 MG/DL Urine Leukocyte Esterase TRACE Urine RBC 10 /hpf Urine WBC 3 /hpf Urine Squamous Epithelial 2 /hpf Cells Microscopic Urinalysis Comment CULT NOT INDICATED Sodium Level 137 MEQ/L Potassium Level 3.2 MEQ/L Chloride Level 103 MEQ/L Carbon Dioxide Level 26.8 MEQ/L Anion Gap 7 MEQ/L Blood Urea Nitrogen 6 MG/DL Creatinine 0.94 MG/DL Estimat Glomerular Filtration 84 ML/MIN Rate Random Glucose 85 MG/DL Calcium Level 9.4 MG/DL Total Bilirubin 0.5 MG/DL Aspartate Amino Transf 33 U/L (AST/SGOT) Alanine Aminotransferase 40 U/L (ALT/SGPT) Alkaline Phosphatase 76 U/L Total Protein 8.2 GM/DL Albumin 4.2 GM/DL Lipase 452 U/L [facility] Medical Decision Making Medical Screen Exam Complete: Yes Emergency Medical Condition: Yes Medical Record Reviewed: Yes Differential Diagnosis Pancreatitis versus chronic abdominal pain versus UTI Narrative Course 30-year-old female presents to the emergency department for 3 days of epigastric and left upper quadrant pain. She does report history of chronic pancreatitis. CBC, CMP, lipase, UA, urine test are ordered and pending. Patient is given normal saline 1 L IV bolus and Zofran 4 mg IV. Patient is given Morphine 4 mg IV. CBC is unremarkable. CMP shows hypokalemia at 3.2. Lipase is mildly elevated at 452. UA is negative for acute infection. UPT is negative. Patient will be discharged a short-term prescription for Lortab for pain. I discussed the physical exam findings and laboratory findings with my attending physician, Dr. Villagomez, who agrees with plan and disposition. The patient was discharged in stable condition with instructions, including return instructions and follow up instructions. Patient does state that she is . She is instructed to not breastfeed for 12 hours after having morphine and is instructed to not breastfeed while on Lortab. She verbalizes understanding. Diagnosis Primary Impression: Chronic pancreatitis Qualified Code: K86.1 - Chronic pancreatitis, unspecified pancreatitis type Referrals: [facility] call for appointment Patient Instructions: General Instructions, Pancreatitis (ED) Departure Forms: Tests/Procedures, Work Release Enter return to work date: Aug 23, 2016 Additional Instructions: Take Lortab as directed as needed for pain. Caution this can make you drowsy so do not drive after taking. Follow up with a sergeant of corrections. Return to the emergency department for any acute, worsening of symptoms. Med/Other Pt SpecificInfo: Prescription(s) given Scripts Hydrocodone-Acetaminophen (Lortab)5-325 Mg Tab1 Tab PO Q6H PRN (PAIN) #8 TAB Ref 0 Prov:Josue Villagomez MD 08/21/16 Disposition: 01 DISCHARGE HOME Condition: Stable Martha Holt Aug 21, 2016 18:08
[2016-08-21] MEDS ORDERED: SODIUM CHLOR 0.9% 1000 ML INJ 1,000 ML IV ONE (18:15)
[2016-08-21] MEDS ORDERED: SODIUM CHLORIDE 0.9% FLUSH 10 ML FLUSH IV FLUSH PRN (18:15)
[2016-08-21] MEDS ORDERED: ONDANSETRON HCL 4 MG/2 ML VIAL IV PUSH ONE (18:15)
[2016-08-21] MEDS ORDERED: MORPHINE SULFATE 4 MG/ML INJ IV PUSH ONE (18:15)
[2016-08-21 18:22] LABS: AUTOMATED NEUTROPHIL # 4.5 TH/MM3 (1.8-7.7); BASOPHIL % 0.6 % (0.0-2.0); EOSINOPHIL % 0.3 % (0.0-4.0); HEMATOCRIT 37.3 % (35.0-46.0); HEMO FLAGS DIFF FINAL; LYMPH % 26.1 % (9.0-44.0); LYMPHOCYTE # 1.8 TH/MM3 (1.0-4.8); MEAN CELL VOLUME 92.2 FL (80.0-100.0); MEAN CORPUSCULAR HEMOGLOBIN 30.5 PG (27.0-34.0); MEAN CORPUSCULAR HGB CONC 33.1 % (32.0-36.0); MONO % 8.7 % (0.0-8.0); NEUT % 64.3 % (16.0-70.0); PLATELET COUNT 194 TH/MM3 (150-450); RED BLOOD COUNT 4.04 MIL/MM3 (4.00-5.30); RED CELL DISTRIBUTION WIDTH 13.3 % (11.6-17.2)
[2016-08-21 18:33] LABS: BLOOD, URINE MOD (NEG); COMMENT (UR) CULT NOT INDICATED; CULTURE IF INDICATED CULT NOT INDICATED; GLUCOSE,URINE NEG (NEG); KETONE, URINE NEG (NEG); NITRITE,URINE NEG (NEG); SQUAMOUS EPITHELIAL CELL URINE 2 /hpf (0-5); URINE COLOR YELLOW (YELLW/STRAW)
[2016-08-21 18:54] LABS: ALT (GPT) 40 U/L (10-53); ANION GAP 7 MEQ/L (5-15); AST (GOT) 33 U/L (15-37); BICARBONATE 26.8 MEQ/L (21.0-32.0); BLOOD UREA NITROGEN 6 MG/DL (7-18); CHLORIDE 103 MEQ/L (98-107); GLOMERULAR FILTRATION RATE 84 ML/MIN (>89); POTASSIUM 3.2 MEQ/L (3.5-5.1); SODIUM (NA) 137 MEQ/L (136-145)
[2016-08-21 18:56] LABS: ALKALINE PHOSPHATASE 76 U/L (45-117); TOTAL BILIRUBIN ADULT 0.5 MG/DL (0.2-1.0)
[2016-08-21] MEDS ORDERED: HYDR-3533 PO (19:37)
[2016-08-21] MEDS ORDERED: POTASSIUM CHLORIDE 20 MEQ CONTROLLED RELEASE TAB PO ONE (19:45)
--- NOTE | 2016-08-23 13:48 | PD ---
Data Data Last Documented VS Vital Signs Date Time Temp Pulse Resp B/P Pulse Ox O2 Delivery O2 Flow Rate FiO2 08/21/16 16:44 98.6 76 20 129/88 99 Room Air Orders Complete Blood Count With Diff (08/21/16 18:02) Comprehensive Metabolic Panel (08/21/16 18:02) Lipase (08/21/16 18:02) Urinalysis - C+S If Indicated (08/21/16 18:02) Iv Access Insert/Monitor (08/21/16 18:02) Ecg Monitoring (08/21/16 18:02) Oximetry (08/21/16 18:02) Sodium Chloride 0.9% Flush (Ns Flush) (08/21/16 18:15) Ed Urine Pregnancytest Poc (08/21/16 18:02) Sodium Chlor 0.9% 1000 Ml Inj (Ns 1000 M (08/21/16 18:15) Ondansetron Inj (Zofran Inj) (08/21/16 18:15) Morphine Inj (Morphine Inj) (08/21/16 18:15) Potassium Chloride (Kcl) (08/21/16 19:45) Labs Laboratory Tests Test 08/21/16 18:12 White Blood Count 7.0 TH/MM3 Red Blood Count 4.04 MIL/MM3 Hemoglobin 12.3 GM/DL Hematocrit 37.3 % Mean Corpuscular Volume 92.2 FL Mean Corpuscular Hemoglobin 30.5 PG Mean Corpuscular Hemoglobin 33.1 % Concent Red Cell Distribution Width 13.3 % Platelet Count 194 TH/MM3 Mean Platelet Volume 8.9 FL Neutrophils (%) (Auto) 64.3 % Lymphocytes (%) (Auto) 26.1 % Monocytes (%) (Auto) 8.7 % Eosinophils (%) (Auto) 0.3 % Basophils (%) (Auto) 0.6 % Neutrophils # (Auto) 4.5 TH/MM3 Lymphocytes # (Auto) 1.8 TH/MM3 Monocytes # (Auto) 0.6 TH/MM3 Eosinophils # (Auto) 0.0 TH/MM3 Basophils # (Auto) 0.0 TH/MM3 CBC Comment DIFF FINAL Differential Comment Urine Color YELLOW Urine Turbidity CLEAR Urine pH 6.0 Urine Specific [place] 1.008 Urine Protein TRACE mg/dL Urine Glucose (UA) NEG mg/dL Urine Ketones NEG mg/dL Urine Occult Blood MOD Urine Nitrite NEG Urine Bilirubin NEG Urine Urobilinogen LESS THAN 2.0 MG/DL Urine Leukocyte Esterase TRACE Urine RBC 10 /hpf Urine WBC 3 /hpf Urine Squamous Epithelial 2 /hpf Cells Microscopic Urinalysis Comment CULT NOT INDICATED Sodium Level 137 MEQ/L Potassium Level 3.2 MEQ/L Chloride Level 103 MEQ/L Carbon Dioxide Level 26.8 MEQ/L Anion Gap 7 MEQ/L Blood Urea Nitrogen 6 MG/DL Creatinine 0.94 MG/DL Estimat Glomerular Filtration 84 ML/MIN Rate Random Glucose 85 MG/DL Calcium Level 9.4 MG/DL Total Bilirubin 0.5 MG/DL Aspartate Amino Transf 33 U/L (AST/SGOT) Alanine Aminotransferase 40 U/L (ALT/SGPT) Alkaline Phosphatase 76 U/L Total Protein 8.2 GM/DL Albumin 4.2 GM/DL Lipase 452 U/L MDM Supervised Visit with LINDSAY: Yes Narrative Course Attestation Statement: The history, exam, and medical decision-making in the LINDSAY note were completed with my assistance. I reviewed and agree with the findings presented. I attest that I had a [id number] encounter with the patient on the same day, and personally performed and documented my assessment and findings in the medical record. *My Assessment and Findings: Was asked by nursing to see patient. She is and has questions about the medicines she was administered. Patient examined, abdomen benign, she is comfortable. I agree with documentation by LINDSAY. Discussed with patient to pump and dump for 24 hours following morphine dose in ER. Discussed if she takes any of the hydrocodone prescribed she should not breast feed. I offered to write her a different script but she still wants the pain medication. Discussed need for follow up with a PCP. She is stable for discharge. Diagnosis Primary Impression: Chronic pancreatitis Qualified Code: K86.1 - Chronic pancreatitis, unspecified pancreatitis type Referrals: [employer] [facility] call for appointment Patient Instructions: General Instructions, Pancreatitis (ED) Departure Forms: Work Release, Enter return to work date: Tests/Procedures Additional Instruction: Take Lortab as directed as needed for pain. Caution this can make you drowsy so do not drive after taking. Follow up with a pre press manager. Return to the emergency department for any acute, worsening of symptoms. Scripts Hydrocodone-Acetaminophen (Lortab)5-325 Mg Tab1 Tab PO Q6H PRN (PAIN) #8 TAB Ref 0 Prov:Josue Villagomez MD 08/21/16 Disposition: 01 DISCHARGE HOME Condition: Stable Josue Villagomez MD Aug 23, 2016 13:48
== END 2016-08-21 21:32 | disposition home or self-care (01) ==
LOC: NEPD 16:43
DX: K86.1 Other chronic pancreatitis (principal); E87.6 Hypokalemia; E78.89 Other lipoprotein metabolism disorders
CPT/HCPCS: 80053; 81001; 83690; 84703; 85025; 96361; 96374; 96375; 99284; J2270; J2405; J7030

== ENCOUNTER 2016-08-23 16:12 | Emergency (ER) | payer MEDICAID ==
[~2016-08-23] VITALS: Ht 160 cm; Wt 70.0 kg
[2016-08-23 16:13] VITALS: BP 170/93; PULSE 59; RESP 17; TEMP 98.2; O2SAT 98
[2016-08-23] MEDS ORDERED: SODIUM CHLOR 0.9% 1000 ML INJ 1,000 ML IV SCH (17:06)
--- NOTE | 2016-08-23 17:10 | PD ---
HPI Chief Complaint: Abdominal Pain Time Seen by Provider: 17:08 Travel History International Travel<30 days: No Contact w/Intl Traveler<30days: No Traveled to known affect area: No History of Present Illness HPI Patient is a 30-year-old female presenting to emergency for evaluation of abdominal pain. Patient states the pain is been ongoing for a week, she reports a history of pancreatitis. She states the pain is a 6 out of 10 and stabbing in nature. She reported the pain is in her epigastric and left upper quadrant area. She has only had a few grapes to eat in the morning and some tea. He states she is not tolerating any other foods or fluids. She denies any chest pain, shortness of breath, vomiting, headache, fever, chills, dysuria. PFSH Past Medical History Hx Anticoagulant Therapy: No Cancer: No Cardiovascular Problems: No Chemotherapy: No Cerebrovascular Accident: No Diabetes: No Diminished Hearing: No Endocrine: No Gastrointestinal Disorders: No GERD: Yes Genitourinary: No Immune Disorder: No Musculoskeletal: No Neurologic: No Psychiatric: No Reproductive: No Respiratory: No Migraines: Yes Pancreatitis: Yes Tetanus Vaccination: < 5 Years ?: Not LMP: 07/2016 : 2 Para: 2 Miscarriage: 0 Past Surgical History Section: Yes (x1) Gynecologic Surgery: Yes (LEEP/cervical biopsy) Hysterectomy: No Other Surgery: No Social History Alcohol Use: No Tobacco Use: No Substance Use: No Allergies-Medications (Allergen,Severity, Reaction): Coded Allergies: No Known Allergies (Unverified , 08/23/16) Reported Meds & Prescriptions Reported Meds & Active Scripts Active Lortab (Hydrocodone-Acetaminophen) 5-325 Mg Tab 1 Tab PO Q6H PRN Tylenol (Acetaminophen) 325 Mg Tab 650 Mg PO Q6H PRN 10 Days Review of Systems Except as stated in HPI: all other systems reviewed are Neg Gastrointestinal: Positive: Nausea, Abdominal Pain Physical Exam Narrative GENERAL: Developed, well-nourished, alert female. Appears uncomfortable, no acute distress. SKIN: Focused skin assessment warm/dry. HEAD: Atraumatic. Normocephalic. EYES: Pupils equal and round. No scleral icterus. No injection or drainage. ENT: No nasal bleeding or discharge. Mucous membranes pink and moist. NECK: Trachea midline. No JVD. CARDIOVASCULAR: Regular rate and rhythm. No murmur appreciated. RESPIRATORY: No accessory muscle use. Clear to auscultation. Breath sounds equal bilaterally. GASTROINTESTINAL: Abdomen soft, generally tender to palpation diffusely, nondistended. Hepatic and splenic margins not palpable. Positive bowel sounds and guarding MUSCULOSKELETAL: No obvious deformities. No clubbing. No cyanosis. No edema. NEUROLOGICAL: Awake and alert. No obvious cranial nerve deficits. Motor grossly within normal limits. Normal speech. PSYCHIATRIC: Appropriate mood and affect; insight and judgment normal. Data Data Last Documented VS Vital Signs Date Time Temp Pulse Resp B/P Pulse Ox O2 Delivery O2 Flow Rate FiO2 08/23/16 17:20 100 08/23/16 16:13 98.2 59 17 170/93 Orders Basic Metabolic Panel (Bmp) (08/23/16 17:06) Complete Blood Count With Diff (08/23/16 17:06) Lipase (08/23/16 17:06) Ct Abd/Pel W Iv Contrast(Rout) (08/23/16 17:06) Iv Access Insert/Monitor (08/23/16 17:06) Ecg Monitoring (08/23/16 17:06) Oximetry (08/23/16 17:06) NPO (08/23/16 17:06) Ondansetron Inj (Zofran Inj) (08/23/16 17:15) Sodium Chlor 0.9% 1000 Ml Inj (Ns 1000 M (08/23/16 17:06) Sodium Chloride 0.9% Flush (Ns Flush) (08/23/16 17:15) Iohexol 350 Inj (Omnipaque 350 Inj) (08/23/16 18:23) Labs Laboratory Tests Test 08/23/16 17:15 White Blood Count 7.9 TH/MM3 Red Blood Count 4.09 MIL/MM3 Hemoglobin 12.8 GM/DL Hematocrit 37.2 % Mean Corpuscular Volume 91.0 FL Mean Corpuscular Hemoglobin 31.2 PG Mean Corpuscular Hemoglobin 34.3 % Concent Red Cell Distribution Width 13.1 % Platelet Count 214 TH/MM3 Mean Platelet Volume 9.3 FL Neutrophils (%) (Auto) 63.1 % Lymphocytes (%) (Auto) 27.2 % Monocytes (%) (Auto) 8.4 % Eosinophils (%) (Auto) 0.6 % Basophils (%) (Auto) 0.7 % Neutrophils # (Auto) 5.0 TH/MM3 Lymphocytes # (Auto) 2.1 TH/MM3 Monocytes # (Auto) 0.7 TH/MM3 Eosinophils # (Auto) 0.0 TH/MM3 Basophils # (Auto) 0.1 TH/MM3 CBC Comment DIFF FINAL Differential Comment Sodium Level 135 MEQ/L Potassium Level 3.7 MEQ/L Chloride Level 101 MEQ/L Carbon Dioxide Level 28.1 MEQ/L Anion Gap 6 MEQ/L Blood Urea Nitrogen 6 MG/DL Creatinine 0.91 MG/DL Estimat Glomerular Filtration 87 ML/MIN Rate Random Glucose 85 MG/DL Calcium Level 9.1 MG/DL Lipase 250 U/L MDM Medical Decision Making Medical Screen Exam Complete: Yes Emergency Medical Condition: Yes Medical Record Reviewed: Yes Interpretation(s) Vital Signs Date Time Temp Pulse Resp B/P Pulse Ox O2 Delivery O2 Flow Rate FiO2 08/23/16 16:13 98.2 59 17 170/93 98 Differential Diagnosis Acute on chronic pancreatitis versus gastritis versus cholecystitis versus appendicitis versus malingering versus other Narrative Course Patient is a 30-year-old female presenting for the second time this week with complaint of abdominal pain related to her pancreatitis. Her lipase is lower today than it was on her visit on the . CT scan abdomen and pelvis shows a stable pseudocyst on the pancreas, no acute changes. CBC and chemistry are unremarkable. She was reassured at this time there is no acute findings on her CAT scan with her lab work. She was given ranitidine and Zofran prescriptions for home. She was advised that she needs to see a home service advisor for further evaluation management. She was given information regarding the [facility]. She verbalized understanding of these instructions. Patient stable for discharge. Diagnosis Primary Impression: Abdominal pain Qualified Code: R10.84 - Generalized abdominal pain Additional Impression: Pancreatic pseudocyst Referrals: [facility] 1 week Patient Instructions: Abdominal Pain (ED), General Instructions Additional Instructions: Follow-up with a home service advisor Take medications as directed Return to emergency department for any new or worsening symptoms Med/Other Pt SpecificInfo: Prescription(s) given Scripts Dicyclomine (Bentyl)10 Mg Cap10 Mg PO TID PRN (CRAMPS) 10 Days Ref 0 Prov:Francisca Guaman 08/23/16 Ondansetron Odt (Zofran Odt)4 Mg Tab4 Mg SL Q6HR PRN (Nausea/Vomiting) 5 Days Ref 0 Prov:Francisca Guaman 08/23/16 Ranitidine 150 Mg Thj419 Mg PO BID #60 TAB Ref 0 Prov:Francisca Guaman 08/23/16 Disposition: 01 DISCHARGE HOME Condition: Stable Francisca Guaman Aug 23, 2016 17:10
[2016-08-23] MEDS ORDERED: SODIUM CHLORIDE 0.9% FLUSH 10 ML FLUSH IV FLUSH PRN (17:15)
[2016-08-23] MEDS ORDERED: ONDANSETRON HCL 4 MG/2 ML VIAL IVP ONE (17:15)
[2016-08-23 17:20] VITALS: O2SAT 100
[2016-08-23 17:47] LABS: BASOPHIL # 0.1 TH/MM3 (0-0.2); BASOPHIL % 0.7 % (0.0-2.0); EOSINOPHIL % 0.6 % (0.0-4.0); HEMATOCRIT 37.2 % (35.0-46.0); HEMO FLAGS DIFF FINAL; LYMPH % 27.2 % (9.0-44.0); LYMPHOCYTE # 2.1 TH/MM3 (1.0-4.8); MEAN CORPUSCULAR HEMOGLOBIN 31.2 PG (27.0-34.0); MEAN CORPUSCULAR HGB CONC 34.3 % (32.0-36.0); MONO % 8.4 % (0.0-8.0); NEUT % 63.1 % (16.0-70.0); PLATELET COUNT 214 TH/MM3 (150-450); RED BLOOD COUNT 4.09 MIL/MM3 (4.00-5.30); RED CELL DISTRIBUTION WIDTH 13.1 % (11.6-17.2); WHITE BLOOD COUNT 7.9 TH/MM3 (4.0-11.0)
[2016-08-23 18:06] LABS: BICARBONATE 28.1 MEQ/L (21.0-32.0); POTASSIUM 3.7 MEQ/L (3.5-5.1)
[2016-08-23] MEDS ORDERED: IOHEXOL 350 MG/ML 10 ML VIAL (for RAD DIAG) IV ONE (18:23)
--- NOTE | 2016-08-23 18:43 | RADRPT ---
EXAM DATE/TIME: 08/23/2016 18:28 [facility] COMPARISON: CT ABDOMEN & PELVIS W CONTRAST, July 04, 2016, 12:00. INDICATIONS : Abdominal and back pain. Pancreatitis exacerbation. IV CONTRAST: 100 cc Omnipaque 350 (iohexol) IV ORAL CONTRAST: No oral contrast ingested. RADIATION DOSE: 5.83 CTDIvol (mGy) MEDICAL HISTORY : Pancreatitis. Gastroesophageal reflux disease. SURGICAL HISTORY : section. ENCOUNTER: Initial ACUITY: 1 day PAIN SCALE: 7/10 LOCATION: Bilateral upper quadrant through to back. TECHNIQUE: Volumetric scanning of the abdomen and pelvis was performed. Using automated exposure control and ad justment of the mA and/or kV according to patient size, radiation dose was kept as low as reasonably achievable to obtain optimal diagnostic quality images. FINDINGS: LOWER LUNGS: The visualized lower lungs are clear. LIVER: Homogeneous density without lesion. There is no dilation of the biliary tree. No calcified gallston es. SPLEEN: Normal size without lesion. There are some varices in the left upper quadrant. PANCREAS: Large cystic structure along the pancreatic tail measures 5.5 x 6.1 cm, not significantly changed. No inflammatory changes. No abscess or peripancreatic fluid collections. KIDNEYS: Normal in size and shape. There is no mass, stone or hydronephrosis. Left renal cyst unchanged. ADRENAL GLANDS: Within normal limits. VASCULAR: There is no aortic aneurysm. BOWEL/MESENTERY: The stomach, small bowel, and colon demonstrate no acute abnormality. There is no free intraperitone al air or fluid. ABDOMINAL WALL: Within normal limits. RETROPERITONEUM: There is no lymphadenopathy. BLADDER: No wall thickening or mass. REPRODUCTIVE: Within normal limits. INGUINAL: There is no lymphadenopathy or hernia. MUSCULOSKELETAL: Within normal limits for patient age. CONCLUSION: 1. Probable pseudocyst along the pancreatic tail not significantly changed. 2. No significant inflammatory changes along the pancreas. 3. Stable left renal cyst. Evan Pereira MD on August 23, 2016 at 18:39 Board Certified Radiologist. This report was verified electronically.
[2016-08-23] MEDS ORDERED: RANI150T PO (19:12)
[2016-08-23] MEDS ORDERED: ZOFR4TAB3 SL (19:12)
[2016-08-23] MEDS ORDERED: DICY10 PO (19:22)
[2016-08-23 19:41] VITALS: BP 169/92
[2016-08-23] MEDS ORDERED: KETOROLAC TROMETHAMINE 60 MG/2 ML (IM) VIAL IM ONE (19:45)
== END 2016-08-23 19:43 | disposition home or self-care (01) ==
LOC: NEPD 16:12
DX: R10.84 Generalized abdominal pain (principal); K86.3 Pseudocyst of pancreas; K21.9 Gastro-esophageal reflux disease without esophagitis; K85.90 Acute pancreatitis without necrosis or infection, unspecified
CPT/HCPCS: 74177; 80048; 83690; 85025; 96361; 96372; 96374; 99284; J1885; J2405; J7030; Q9967

== ENCOUNTER 2017-03-23 20:20 | Observation (INO) | payer MEDICAID ==
[~2017-03-23] VITALS: Ht 160 cm; Wt 66.4 kg
[2017-03-23 20:20] VITALS: BP 137/93; PULSE 83; RESP 18; TEMP 98.5; O2SAT 100
[~2017-03-23 20:20] MED LIST changes: +DICY10 PO; +RANI150T PO; +ZOFR4TAB3 SL
[2017-03-23 20:43] VITALS: BP 129/84; PULSE 70; RESP 22; O2SAT 100
[2017-03-23] MEDS ORDERED: SODIUM CHLOR 0.9% 1000 ML INJ 1,000 ML IV ONE (20:45)
[2017-03-23] MEDS ORDERED: KETOROLAC TROMETHAMINE 30 MG/ML (IVP) VIAL IV PUSH ONE (20:45)
[2017-03-23] MEDS ORDERED: METOCLOPRAMIDE HCL 10 MG TAB PO ONE (20:45)
[2017-03-23] MEDS ORDERED: diphenhydrAMINE HCL 50 MG/ML VIAL IV PUSH ONE (20:45)
--- NOTE | 2017-03-23 20:48 | PD ---
HPI Chief Complaint: Abdominal Pain Time Seen by Provider: 20:34 Travel History International Travel<30 days: No Contact w/Intl Traveler<30days: No Traveled to known affect area: No History of Present Illness HPI Through 1-year-old black female presents to emergency department with complains of abdominal pain and flank pain that started yesterday. She states that she was at work yesterday and developed some mild discomfort in her left abdomen and left flank. Since that the pain intensified today with some associated nausea vomiting. She states the pain in a 7/10. She feels that the pain may have been exacerbated by eating because it started to become more intense seeming after eating. There is no alleviating factors. She denies any fever chills. No cough or congestion. No dysuria or frequency. No hematuria. No vaginal discharge. PFSH Past Medical History Narrative Medical GERD, Pancreatitis Hx Anticoagulant Therapy: No Cancer: No Cardiovascular Problems: No Chemotherapy: No Cerebrovascular Accident: No Diabetes: No Diminished Hearing: No Endocrine: No Gastrointestinal Disorders: No GERD: Yes Genitourinary: No Immune Disorder: No Musculoskeletal: No Neurologic: No Psychiatric: No Reproductive: No Respiratory: No Migraines: Yes Pancreatitis: Yes Tetanus Vaccination: < 5 Years ?: Not LMP: 03/07/17 : 2 Para: 2 Miscarriage: 0 Past Surgical History Narrative Surgical , LEEP for cervical dysplasia and HPV Section: Yes (x1) Gynecologic Surgery: Yes (LEEP/cervical biopsy) Hysterectomy: No Other Surgery: No Social History Alcohol Use: No Tobacco Use: No Substance Use: No Allergies-Medications (Allergen,Severity, Reaction): Coded Allergies: No Known Allergies (Unverified Adverse Reaction, Unknown, 03/23/17) Reported Meds & Prescriptions Reported Meds & Active Scripts Active No Active Prescriptions or Reported Medications Review of Systems General / Constitutional: No: Fever Eyes: No: Visual changes HENT: No: Headaches Cardiovascular: No: Chest Pain or Discomfort Respiratory: No: Shortness of Breath Gastrointestinal: Positive: Nausea, Vomiting, Abdominal Pain, Other (left flank pain) Genitourinary: Positive: Flank Pain, No: Dysuria, Nocturia, Hematuria, Pelvic Pain, Discharge Musculoskeletal: No: Pain Skin: No Rash Neurologic: No: Weakness Psychiatric: No: Depression Endocrine: No: Polydipsia Hematologic/Lymphatic: No: Easy Bruising Physical Exam Narrative GENERAL: Well-developed, well-nourished in no apparent distress. Nontoxic appearing. HEAD: Normocephalic, atraumatic. EYES: Pupils equal round and reactive. Extraocular motions intact. No scleral icterus. No injection or drainage. ENT: Nose clear. Throat without erythema, tonsillar hypertrophy or exudate. Uvula midline. Airway patent. NECK: Trachea midline. Supple, nontender, moves head freely. No central bony tenderness or spasm. CARDIOVASCULAR: Regular rate and rhythm without murmurs, gallops, or rubs. RESPIRATORY: Clear to auscultation. Breath sounds equal bilaterally. No wheezes , rales, or rhonchi. GASTROINTESTINAL: Abdomen soft, mild tenderness in the epigastric and left upper quadrant to deep palpation., nondistended. No hepato-splenomegaly, or palpable masses. No guarding. EXTREMITIES: No clubbing, cyanosis, or edema. No joint tenderness. BACK: Nontender without deformity. Positive left CVAT NEUROLOGICAL: Awake, alert and oriented x 3 .Cranial nerves grossly intact. Motor and sensory grossly within normal limits. Normal speech. Data Data Last Documented VS Vital Signs Date Time Temp Pulse Resp B/P (MAP) Pulse Ox O2 Delivery O2 Flow Rate FiO2 03/23/17 20:43 70 22 129/84 (99) 100 Room Air 03/23/17 20:20 98.5 Orders Orders Complete Blood Count With Diff (03/23/17 20:42) Comprehensive Metabolic Panel (03/23/17 20:42) Lipase (03/23/17 20:42) Urinalysis - C+S If Indicated (03/23/17 20:42) Iv Access Insert/Monitor (03/23/17 20:42) Ed Urine Pregnancytest Poc (03/23/17 20:42) Sodium Chlor 0.9% 1000 Ml Inj (Ns 1000 M (03/23/17 20:45) Diphenhydramine Inj (Benadryl Inj) (03/23/17 20:45) Metoclopramide (Reglan) (03/23/17 20:45) Ketorolac Inj (Toradol Inj) (03/23/17 20:45) Morphine Inj (Morphine Inj) (03/23/17 21:45) Pantoprazole Inj (Protonix Inj) (03/23/17 22:00) Ct Abd/Pel W/O Iv Contrast (03/23/17 22:03) Admit Order (Ed Use Only) (03/23/17 ) Vital Signs (Adult) Q4H (03/23/17 22:08) Diet Npo (03/24/17 Breakfast) Activity Oob With Assistance (03/23/17 22:08) Notify Dr: Other (03/23/17 22:08) Labs Laboratory Tests Test 03/23/17 20:45 White Blood Count 6.7 TH/MM3 Red Blood Count 3.78 MIL/MM3 Hemoglobin 12.2 GM/DL Hematocrit 36.0 % Mean Corpuscular Volume 95.4 FL Mean Corpuscular Hemoglobin 32.2 PG Mean Corpuscular Hemoglobin Concent 33.7 % Red Cell Distribution Width 13.1 % Platelet Count 218 TH/MM3 Mean Platelet Volume 8.7 FL Neutrophils (%) (Auto) 47.3 % Lymphocytes (%) (Auto) 43.8 % Monocytes (%) (Auto) 7.5 % Eosinophils (%) (Auto) 0.7 % Basophils (%) (Auto) 0.7 % Neutrophils # (Auto) 3.1 TH/MM3 Lymphocytes # (Auto) 2.9 TH/MM3 Monocytes # (Auto) 0.5 TH/MM3 Eosinophils # (Auto) 0.0 TH/MM3 Basophils # (Auto) 0.0 TH/MM3 CBC Comment DIFF FINAL Differential Comment Blood Urea Nitrogen 14 MG/DL Creatinine 0.92 MG/DL Random Glucose 92 MG/DL Total Protein 8.0 GM/DL Albumin 4.0 GM/DL Calcium Level 8.6 MG/DL Alkaline Phosphatase 69 U/L Aspartate Amino Transf (AST/SGOT) 22 U/L Alanine Aminotransferase (ALT/SGPT) 25 U/L Total Bilirubin 0.2 MG/DL Sodium Level 139 MEQ/L Potassium Level 3.5 MEQ/L Chloride Level 106 MEQ/L Carbon Dioxide Level 28.3 MEQ/L Anion Gap 5 MEQ/L Estimat Glomerular Filtration Rate 86 ML/MIN Lipase 767 U/L MDM Medical Decision Making Medical Screen Exam Complete: Yes Emergency Medical Condition: Yes Medical Record Reviewed: Yes Interpretation(s) Laboratory Tests Test 03/23/17 20:45 White Blood Count 6.7 TH/MM3 Red Blood Count 3.78 MIL/MM3 Hemoglobin 12.2 GM/DL Hematocrit 36.0 % Mean Corpuscular Volume 95.4 FL Mean Corpuscular Hemoglobin 32.2 PG Mean Corpuscular Hemoglobin Concent 33.7 % Red Cell Distribution Width 13.1 % Platelet Count 218 TH/MM3 Mean Platelet Volume 8.7 FL Neutrophils (%) (Auto) 47.3 % Lymphocytes (%) (Auto) 43.8 % Monocytes (%) (Auto) 7.5 % Eosinophils (%) (Auto) 0.7 % Basophils (%) (Auto) 0.7 % Neutrophils # (Auto) 3.1 TH/MM3 Lymphocytes # (Auto) 2.9 TH/MM3 Monocytes # (Auto) 0.5 TH/MM3 Eosinophils # (Auto) 0.0 TH/MM3 Basophils # (Auto) 0.0 TH/MM3 CBC Comment DIFF FINAL Differential Comment Blood Urea Nitrogen 14 MG/DL Creatinine 0.92 MG/DL Random Glucose 92 MG/DL Total Protein 8.0 GM/DL Albumin 4.0 GM/DL Calcium Level 8.6 MG/DL Alkaline Phosphatase 69 U/L Aspartate Amino Transf (AST/SGOT) 22 U/L Alanine Aminotransferase (ALT/SGPT) 25 U/L Total Bilirubin 0.2 MG/DL Sodium Level 139 MEQ/L Potassium Level 3.5 MEQ/L Chloride Level 106 MEQ/L Carbon Dioxide Level 28.3 MEQ/L Anion Gap 5 MEQ/L Estimat Glomerular Filtration Rate 86 ML/MIN Lipase 767 U/L Differential Diagnosis Differential diagnoses: Cholecystitis, pancreatitis, nephrolithiasis, GERD, gastroenteritis, UTI, follow Narrative Course IV access is obtained. Patient's given a liter bolus of normal saline, Benadryl 50 mg IV, Reglan 10 mg IV, and Toradol 30 mg IV. Routine laboratory testing sent for analysis. Patient is reexamined at 2136. She is feeling some improvement of her pain. She is aware that she has elevated lipase consistent with acute pancreatitis again. Patient has a history of chronic pancreatitis. I reviewed the patient's CAT scan from her last evaluation revealing a pseudocyst. I have discussed the case with Dr. Ye who is agreed to admit the patient today and she also recommends repeating her CAT scan today. Dr. Schroeder the GI doctor saw her on her last admission. This acute pancreatitis Diagnosis Primary Impression: Acute pancreatitis Qualified Codes: K85.90 - Acute pancreatitis without necrosis or infection, unspecified Scripts No Active Prescriptions or Reported Meds Condition: Angelo Mandel Mar 23, 2017 20:48
[2017-03-23 21:02] LABS: AUTOMATED NEUTROPHIL # 3.1 TH/MM3 (1.8-7.7); BASOPHIL % 0.7 % (0.0-2.0); EOSINOPHIL % 0.7 % (0.0-4.0); HEMO FLAGS DIFF FINAL; LYMPH % 43.8 % (9.0-44.0); LYMPHOCYTE # 2.9 TH/MM3 (1.0-4.8); MEAN CELL VOLUME 95.4 FL (80.0-100.0); MEAN CORPUSCULAR HEMOGLOBIN 32.2 PG (27.0-34.0); MEAN CORPUSCULAR HGB CONC 33.7 % (32.0-36.0); MONO % 7.5 % (0.0-8.0); NEUT % 47.3 % (16.0-70.0); PLATELET COUNT 218 TH/MM3 (150-450); RED BLOOD COUNT 3.78 MIL/MM3 (4.00-5.30); RED CELL DISTRIBUTION WIDTH 13.1 % (11.6-17.2); WHITE BLOOD COUNT 6.7 TH/MM3 (4.0-11.0)
[2017-03-23 21:22] LABS: ANION GAP 5 MEQ/L (5-15); AST (GOT) 22 U/L (15-37); BICARBONATE 28.3 MEQ/L (21.0-32.0); BLOOD UREA NITROGEN 14 MG/DL (7-18); CHLORIDE 106 MEQ/L (98-107); GLOMERULAR FILTRATION RATE 86 ML/MIN (>89); POTASSIUM 3.5 MEQ/L (3.5-5.1); SODIUM (NA) 139 MEQ/L (136-145)
[2017-03-23 21:23] LABS: ALT (GPT) 25 U/L (10-53)
[2017-03-23 21:25] LABS: ALKALINE PHOSPHATASE 69 U/L (45-117); TOTAL BILIRUBIN ADULT 0.2 MG/DL (0.2-1.0)
[2017-03-23] MEDS ORDERED: MORPHINE SULFATE 4 MG/ML INJ IV PUSH ONE (21:45)
[2017-03-23] MEDS ORDERED: PANTOPRAZOLE SODIUM 40 MG VIAL IV PUSH ONE (22:00)
[2017-03-23 22:16] LABS: BLOOD, URINE MOD (NEG); GLUCOSE,URINE NEG (NEG); KETONE, URINE NEG (NEG); NITRITE,URINE NEG (NEG); URINE COLOR LIGHT-YELLOW (YELLW/STRAW)
[2017-03-23 22:26] LABS: WBC, URINE 0-2 /hpf (0-5)
[2017-03-23 22:27] LABS: COMMENT (UR) CULT NOT INDICATED; CULTURE IF INDICATED CULT NOT INDICATED; SQUAMOUS EPITHELIAL CELL URINE 0-5 /hpf (0-5)
--- NOTE | 2017-03-23 22:32 | HHI.HP ---
HPI Service [facility] Primary Care Physician No Primary Care Physician Admission Diagnosis acute pancreatitis Diagnoses: (1) Pancreatitis Diagnosis: Principal (2) Intractable abdominal pain Diagnosis: Principal (3) Dehydration Diagnosis: Principal Travel History International Travel<30 Days: No Contact w/Intl Traveler <30 Da: No Traveled to Known Affected Are: No History of Present Illness This is a 31-year-old female with a PMH of GERD and Pancreatitis w/ Pancreatic Cyst Drainage 2013 who presented to the ER with complaints of severe abdominal pain x1 day. States symptoms similar to previous episodes of pancreatitis. + associated nausea/vomiting and decreased PO intake. Previous admit 07/04/16 for Pancreatitis, CT Abd/Pelvis 07/04/16 w/ 5.4 x 6cm pseudocyst, s/p eval by Dr. Grossman, no intervention required at that time as Pancreatitis resolved. Recommended follow up following discharge, however pt states she's been unable to follow up. On arrival, BP 137/93, HR 83, O2 sat 100% on RA, Afebrile. CBC unremarkable. Chemistry essentially unremarkable except for GFR 86. Lipase 767. UA negative. Review of Systems Except as stated in HPI: all other systems reviewed are Neg ROS: 14 point review of systems otherwise negative. Past Family Social History Past Medical History PMH: GERD and Pancreatitis w/ Pancreatic Cyst Drainage 2013 Past Surgical History PAST SURGICAL HISTORY: , LEEP Allergies: Coded Allergies: No Known Allergies (Unverified Allergy, Unknown, 03/23/17) Family History PAST FAMILY HISTORY: Reviewed. No h/o DM or CAD Social History PAST SOCIAL HISTORY: Negative for alcohol, tobacco or drugs. Physical Exam Vital Signs Vital Signs Date Time Temp Pulse Resp B/P (MAP) Pulse Ox O2 Delivery O2 Flow Rate FiO2 03/23/17 20:43 70 22 129/84 (99) 100 Room Air 03/23/17 20:20 98.5 83 18 137/93 (108) 100 Room Air Physical Exam PE: GENERAL: Young black female in no acute distress, but in obvious pain. HEENT: PERRLA, EOMI. No scleral icterus or conjunctival pallor. No lid lag or facial droop. CARDIOVASCULAR: Regular rate and rhythm. No obvious murmurs to auscultation. No chest tenderness to palpation. RESPIRATORY: No obvious rhonchi or wheezing. Clear to auscultation. Breath sounds equal bilaterally. GASTROINTESTINAL: Abdomen soft, epigastric tenderness to palpation, nondistended. BS normal. MUSCULOSKELETAL: Extremities without clubbing, cyanosis, or edema. No obvious deformities. NEUROLOGICAL: Awake, alert and oriented x4. No focal neurologic deficits. Moving both upper and lower extremities spontaneously. Laboratory Laboratory Tests Test 03/23/17 20:45 03/23/17 21:35 White Blood Count 6.7 Red Blood Count 3.78 Hemoglobin 12.2 Hematocrit 36.0 Mean Corpuscular Volume 95.4 Mean Corpuscular Hemoglobin 32.2 Mean Corpuscular Hemoglobin Concent 33.7 Red Cell Distribution Width 13.1 Platelet Count 218 Mean Platelet Volume 8.7 Neutrophils (%) (Auto) 47.3 Lymphocytes (%) (Auto) 43.8 Monocytes (%) (Auto) 7.5 Eosinophils (%) (Auto) 0.7 Basophils (%) (Auto) 0.7 Neutrophils # (Auto) 3.1 Lymphocytes # (Auto) 2.9 Monocytes # (Auto) 0.5 Eosinophils # (Auto) 0.0 Basophils # (Auto) 0.0 CBC Comment DIFF FINAL Differential Comment Blood Urea Nitrogen 14 Creatinine 0.92 Random Glucose 92 Total Protein 8.0 Albumin 4.0 Calcium Level 8.6 Alkaline Phosphatase 69 Aspartate Amino Transf (AST/SGOT) 22 Alanine Aminotransferase (ALT/SGPT) 25 Total Bilirubin 0.2 Sodium Level 139 Potassium Level 3.5 Chloride Level 106 Carbon Dioxide Level 28.3 Anion Gap 5 Estimat Glomerular Filtration Rate 86 Lipase 767 Urine Color LIGHT-YELLOW Urine Turbidity CLEAR Urine pH 7.0 Urine Specific [place] 1.013 Urine Protein NEG Urine Glucose (UA) NEG Urine Ketones NEG Urine Occult Blood MOD Urine Nitrite NEG Urine Bilirubin NEG Urine Urobilinogen LESS THAN 2.0 Urine Leukocyte Esterase NEG Urine RBC 4-9 Urine WBC 0-2 Urine Squamous Epithelial Cells 0-5 Microscopic Urinalysis Comment CULT NOT INDICATED Result Diagram: 03/23/17204403/23/172044 Caprini VTE Risk Assessment Caprini VTE Risk Assessment: No/Low Risk (score <= 1) Caprini Risk Assessment Model Point Value = 1 Point Value = 2 Point Value = 3 Point Value = 5 Age 41-60 Minor surgery BMI > 25 kg/m2 Swollen legs Varicose veins or History of unexplained or recurrent spontaneous Oral contraceptives or hormone replacement Sepsis (< 1 month) Serious lung disease, including pneumonia (< 1 month) Abnormal pulmonary function Acute myocardial infarction Congestive heart failure (< 1 month) History of inflammatory bowel disease Medical patient at bed rest Age 61-74 Arthroscopic surgery Major open surgery (> 45 min) Laparoscopic surgery (> 45 min) Malignancy Confined to bed (> 72 hours) Immobilizing plaster cast Central venous access Age >= 75 History of VTE Family history of VTE Factor V Leiden Prothrombin [id number] Lupus anticoagulant Anticardiolipin antibodies Elevated serum homocysteine Heparin-induced thrombocytopenia Other congenital or acquired thrombophilia Stroke (< 1 month) Elective arthroplasty Hip, pelvis, or leg fracture Acute spinal cord injury (< 1 month) Prophylaxis Regimen Total Risk Factor Score Risk Level Prophylaxis Regimen 0-1 Low Early ambulation 2 Moderate Order ONE of the following: *Sequential Compression Device (SCD) *Heparin 5000 units SQ BID 3-4 Higher Order ONE of the following medications: *Heparin 5000 units SQ TID *Enoxaparin/Lovenox 40 mg SQ daily (WT < 150 kg, CrCl > 30 mL/min) *Enoxaparin/Lovenox 30 mg SQ daily (WT < 150 kg, CrCl > 10-29 mL/min) *Enoxaparin/Lovenox 30 mg SQ BID (WT < 150 kg, CrCl > 30 mL/min) AND/OR *Sequential Compression Device (SCD) 5 or more Highest Order ONE of the following medications: *Heparin 5000 units SQ TID (Preferred with Epidurals) *Enoxaparin/Lovenox 40 mg SQ daily (WT < 150 kg, CrCl > 30 mL/min) *Enoxaparin/Lovenox 30 mg SQ daily (WT < 150 kg, CrCl > 10-29 mL/min) *Enoxaparin/Lovenox 30 mg SQ BID (WT < 150 kg, CrCl > 30 mL/min) AND *Sequential Compression Device (SCD) Assessment and Plan Problem List: (1) Pancreatitis ICD Code: K85.90 - Acute pancreatitis without necrosis or infection, unspecified (2) Intractable abdominal pain ICD Code: R10.9 - Unspecified abdominal pain (3) Dehydration ICD Code: E86.0 - Dehydration Assessment and Plan A/P: 1. Pancreatitis: Recurrent, h/o Pancreatic Cyst s/p drainage 2013, recent admit 07/2016 w/ Pseudocyst, now w/ recurrent pancreatitis. Lipase 767. CT Abd/ Pelvis pending to eval for pseudocyst. GI Consult as needed. NPO, IVF, analgesics/antiemetics. 2. Intractable Abd Pain: Secondary to above, continue w/ Analgesics/ antiemetics 3. Dehydration: GFR 86, IVF for hydration, repeat labs in am. 4. DVT Prophylaxis: SCD/Teds. 5. Social work for d/c planning as needed. 6. Case discussed w/ ER physician at length. Kezia Ye MD Mar 23, 2017 22:32
[2017-03-23] MEDS ORDERED: ONDANSETRON HCL 4 MG/2 ML VIAL IVP PRN (22:45)
[2017-03-23] MEDS ORDERED: ACETAMINOPHEN/HYDROcodone 325 MG/5 MG TAB PO PRN (22:45)
[2017-03-23] MEDS ORDERED: ACETAMINOPHEN 325 MG TAB PO PRN (22:45)
[2017-03-23] MEDS ORDERED: SENNOSIDES 8.6 MG TAB PO PRN (22:45)
[2017-03-23] MEDS ORDERED: MAGNESIUM HYDROXIDE SUSP 30 ML CUP PO PRN (22:45)
[2017-03-23] MEDS ORDERED: MORPHINE SULFATE 2 MG/ML INJ IV PRN (22:45)
[2017-03-23] MEDS ORDERED: BISACODYL 10 MG SUPP RECTAL PRN (22:45)
[2017-03-23] MEDS ORDERED: LACTULOSE SYRUP 20 GM/30 ML CUP PO PRN (22:45)
[2017-03-23] MEDS ORDERED: MORPHINE SULFATE 4 MG/ML INJ IV PUSH PRN (22:45)
[2017-03-23] MEDS ORDERED: SODIUM CHLORIDE 0.9% FLUSH 10 ML FLUSH IV FLUSH PRN (22:45)
[2017-03-23] MEDS: SODIUM CHLOR 0.9% 1000 ML INJ 1,000 ML IV SCH (22:57)
--- NOTE | 2017-03-23 23:43 | RADRPT ---
EXAM DATE/TIME: 03/23/2017 23:30 [facility] COMPARISON: CT ABDOMEN & PELVIS W CONTRAST, August 23, 2016, 18:28. INDICATIONS : Abdominal pain. ORAL CONTRAST: No oral contrast ingested. RADIATION DOSE: 5.51 CTDIvol (mGy) MEDICAL HISTORY : Pancreatitis. Gastroesophageal reflux disease. SURGICAL HISTORY : section. ENCOUNTER: Initial ACUITY: 1 day PAIN SCALE: 7/10 LOCATION: Bilateral abdomen TECHNIQUE: Volumetric scanning of the abdomen and pelvis was performed. Using automated exposure control and ad justment of the mA and/or kV according to patient size, radiation dose was kept as low as reasonably achievable to obtain optimal diagnostic quality images. DICOM format image data is available electro nically for review and comparison. FINDINGS: LOWER LUNGS: The visualized lower lungs are clear. LIVER: Homogeneous density without lesion. There is no dilation of the biliary tree. No calcified gallston es. SPLEEN: Normal size without lesion. PANCREAS: 6.0 x 6.9 by 5.8 cm pseudocyst again seen of the pancreatic tail, previously 5.5 x 6.1 by 5.7 cm. No perceptible acute inflammatory changes. KIDNEYS: Unchanged benign 2.3 cm cyst of the left upper pole. ADRENAL GLANDS: Within normal limits. VASCULAR: There is no aortic aneurysm. BOWEL/MESENTERY: The stomach, small bowel, and colon demonstrate no acute abnormality. There is no free intraperitone al air or fluid. ABDOMINAL WALL: Within normal limits. RETROPERITONEUM: There is no lymphadenopathy. BLADDER: No wall thickening or mass. REPRODUCTIVE: Within normal limits. INGUINAL: There is no lymphadenopathy or hernia. MUSCULOSKELETAL: No acute bony abnormality. CONCLUSION: 1. No acute abnormality demonstrated. 2. Pseudocyst of the pancreatic tail measures slightly larger over the past 7 months. No acute inflam matory changes are demonstrated. 3. Stable, benign 2.3 cm cyst of the left kidney. Levi Recinos MD on March 23, 2017 at 23:39 Board Certified Radiologist. This report was verified electronically.
[2017-03-24] VITALS: BP 136/69; PULSE 83; RESP 18; TEMP 97.7; O2SAT 99
[2017-03-24 03:39] VITALS: BP 106/61; PULSE 84; RESP 18; TEMP 97.9; O2SAT 94
[2017-03-24 06:02] LABS: AUTOMATED NEUTROPHIL # 4.8 TH/MM3 (1.8-7.7); BASOPHIL % 0.5 % (0.0-2.0); EOSINOPHIL % 0.1 % (0.0-4.0); HEMATOCRIT 34.1 % (35.0-46.0); HEMO FLAGS DIFF FINAL; LYMPH % 26.7 % (9.0-44.0); LYMPHOCYTE # 1.9 TH/MM3 (1.0-4.8); MEAN CELL VOLUME 95.4 FL (80.0-100.0); MEAN CORPUSCULAR HEMOGLOBIN 31.9 PG (27.0-34.0); MEAN CORPUSCULAR HGB CONC 33.4 % (32.0-36.0); MONO % 6.7 % (0.0-8.0); PLATELET COUNT 185 TH/MM3 (150-450); RED BLOOD COUNT 3.57 MIL/MM3 (4.00-5.30); WHITE BLOOD COUNT 7.3 TH/MM3 (4.0-11.0)
[2017-03-24 06:32] LABS: ALKALINE PHOSPHATASE 59 U/L (45-117); ALT (GPT) 21 U/L (10-53); ANION GAP 7 MEQ/L (5-15); AST (GOT) 17 U/L (15-37); BICARBONATE 27.2 MEQ/L (21.0-32.0); BLOOD UREA NITROGEN 8 MG/DL (7-18); CHLORIDE 106 MEQ/L (98-107); GLOMERULAR FILTRATION RATE 108 ML/MIN (>89); POTASSIUM 3.4 MEQ/L (3.5-5.1); SODIUM (NA) 140 MEQ/L (136-145); TOTAL BILIRUBIN ADULT 0.2 MG/DL (0.2-1.0)
[2017-03-24] MEDS: SODIUM CHLORIDE 0.9% FLUSH 10 ML FLUSH IV FLUSH SCH ×2 (07:28→20:55)
[2017-03-24] MEDS: SODIUM CHLOR 0.9% 1000 ML INJ 1,000 ML IV SCH ×2 (07:28→20:55)
[2017-03-24] MEDS: DOCUSATE SODIUM 50 MG/SENNA 8.6 MG TAB PO SCH ×2 (07:29→20:55)
[2017-03-24] MEDS: FAMOTIDINE 20 MG/2 ML VIAL IV PUSH SCH ×2 (07:29→20:55)
[2017-03-24 07:46] VITALS: BP 104/61; PULSE 78; RESP 18; TEMP 98.1; O2SAT 98
[2017-03-24] MEDS ORDERED: POTASSIUM CHLOR 20 MEQ PREMIX 100 ML IV ONE (08:00)
--- NOTE | 2017-03-24 11:42 | HHI.PR ---
Subjective Remarks Patient appears in nad. Says she has less abdominal pain , no nausea or vomiting , no diarrhea or constipation. Denies fever or chills. No n/v/d/c. Denies chest pain or sob. Feels comfortable to advance diet to CLD Objective Vitals Vital Signs Date Time Temp Pulse Resp B/P (MAP) Pulse Ox O2 Delivery O2 Flow Rate FiO2 03/24/17 07:46 98.1 78 18 104/61 (75) 98 03/24/17 03:39 97.9 84 18 106/61 (76) 94 03/24/17 00:00 97.7 83 18 136/69 (91) 99 03/23/17 20:43 70 22 129/84 (99) 100 Room Air 03/23/17 20:20 98.5 83 18 137/93 (108) 100 Room Air I/O 03/23/17 03/23/17 03/23/17 03/24/17 03/24/17 03/24/17 07:00 15:00 23:00 07:00 15:00 23:00 Intake Total 2000 ml Balance 2000 ml Intake Oral 0 ml IV Total 2000 ml # Voids 1 # Bowel Movements 0 Result Diagram: 03/24/17 0448 03/24/17 0448 Imaging Last Impressions Abdomen/Pelvis CT 03/23/172202 Signed Impressions: Service Date/Time: Thursday, March 23, 2017 23:30 - CONCLUSION: 1. No acute abnormality demonstrated. 2. Pseudocyst of the pancreatic tail measures slightly larger over the past 7 months. No acute inflammatory changes are demonstrated. 3. Stable, benign 2.3 cm cyst of the left kidney. Levi Recinos MD Objective Remarks GENERAL: Young black female in no acute distress, but in obvious pain. HEENT: PERRLA, EOMI. No scleral icterus or conjunctival pallor. No lid lag or facial droop. CARDIOVASCULAR: Regular rate and rhythm. No obvious murmurs to auscultation. No chest tenderness to palpation. RESPIRATORY: No obvious rhonchi or wheezing. Clear to auscultation. Breath sounds equal bilaterally. GASTROINTESTINAL: Abdomen soft, epigastric tenderness to palpation, nondistended. BS normal. MUSCULOSKELETAL: Extremities without clubbing, cyanosis, or edema. No obvious deformities. NEUROLOGICAL: Awake, alert and oriented x4. No focal neurologic deficits. Moving both upper and lower extremities spontaneously. A/P Problem List: (1) Pancreatitis ICD Code: K85.90 - Acute pancreatitis without necrosis or infection, unspecified (2) Intractable abdominal pain ICD Code: R10.9 - Unspecified abdominal pain (3) Dehydration ICD Code: E86.0 - Dehydration Assessment and Plan Pancreatitis: Recurrent, h/o Pancreatic Cyst s/p drainage 2013, recent admit 2016 w/ Pseudocyst, now w/ recurrent pancreatitis. Lipase 7[address]in. Trending down. CT Abd/Pelvis reviewed and findings discussed with the patient , pseudocyst in pancreaticc tail is enlarged. GI Consult. Continue VF, analgesics/antiemetics. Advance diet to CLD. Intractable Abd Pain: Secondary to above, continue w/ Analgesics/antiemetics Dehydration: GFR 86, IVF for hydration, repeat labs in am. DVT Prophylaxis: SCD/Teds. Social work for d/c planning as needed. Case discussed w/ ER physician at length. Tahira Rosado MD Mar 24, 2017 11:42
[2017-03-24 12:00] VITALS: BP 106/68; PULSE 78; RESP 18; TEMP 98; O2SAT 98
[2017-03-24 16:00] VITALS: BP 111/75; PULSE 80; RESP 18; TEMP 98.4; O2SAT 100
--- NOTE | 2017-03-24 16:44 | PD.CONS ---
HPI History of Present Illness This is a 31 year old female with hx pancreatic pseudocyst s/p drainage 2013, pancreatitis who presented with abd pain, n/v. 3 days ago she had epigastric and LUQ pain that radiated to the back. It improved at night. The next day she had fried chicken and the pain returned, she took motrin and that did not help. She also had nausea and nonblood emesis. No diarrhea, blood in stool, weight loss, tarry stool. She had pancreatitis and pseudocyst in 2013 and had cyst drained and after which she stopped ETOH consumption and has had none since. She had similar episodes of pain when she was in 2015. CT 03/23/17 showing slightly larger pseudocyst, no other acute abnormalities. Lipase was elevated on admission 767 and has improved somewhat. At this time pt denies nausea or significant pain. (Almaz Lange) PFSH Past Medical History PMH: GERD and Pancreatitis w/ Pancreatic Cyst Drainage 2013 Past Surgical History PAST SURGICAL HISTORY: , LEEP (Almaz Lange) Coded Allergies: No Known Allergies (Unverified Allergy, Unknown, 03/23/17) Family History PAST FAMILY HISTORY: Reviewed. No h/o DM or CAD Social History PAST SOCIAL HISTORY: Negative for alcohol, tobacco or drugs. (Almaz Lnage) Review of Systems Constitutional: DENIES: Weight loss Eyes: DENIES: Blurred vision Ears, nose, mouth, throat: DENIES: Hearing loss Respiratory: DENIES: Cough Cardiovascular: DENIES: Chest pain Gastrointestinal: COMPLAINS OF: Abdominal pain, Nausea, Vomiting, DENIES: Black stools, Bloody stools, Constipation, Diarrhea, Hematemesis Genitourinary: DENIES: Hematuria Musculoskeletal: DENIES: Joint Swelling Integumentary: DENIES: Rash Immunologic/allergic: COMPLAINS OF: Eczema Neurologic: DENIES: Abnormal gait Psychiatric: DENIES: Confusion (Almaz Lange) GI Exam Vitals I&O Vital Signs Date Time Temp Pulse Resp B/P (MAP) Pulse Ox O2 Delivery O2 Flow Rate FiO2 03/24/17 12:00 98.0 78 18 106/68 (81) 98 03/24/17 07:46 98.1 78 18 104/61 (75) 98 03/24/17 03:39 97.9 84 18 106/61 (76) 94 03/24/17 00:00 97.7 83 18 136/69 (91) 99 03/23/17 20:43 70 22 129/84 (99) 100 Room Air 03/23/17 20:20 98.5 83 18 137/93 (108) 100 Room Air I/O 03/23/17 03/23/17 03/23/17 03/24/17 03/24/17 03/24/17 07:00 15:00 23:00 07:00 15:00 23:00 Intake Total 2000 ml Balance 2000 ml Intake Oral 0 ml IV Total 2000 ml # Voids 1 # Bowel Movements 0 Imaging Last Impressions Abdomen/Pelvis CT 03/23/172202 Signed Impressions: Service Date/Time: Thursday, March 23, 2017 23:30 - CONCLUSION: 1. No acute abnormality demonstrated. 2. Pseudocyst of the pancreatic tail measures slightly larger over the past 7 months. No acute inflammatory changes are demonstrated. 3. Stable, benign 2.3 cm cyst of the left kidney. Levi Recinos MD Laboratory Test 03/23/17 20:45 03/23/17 21:35 03/24/17 04:48 White Blood Count 6.7 TH/MM3 7.3 TH/MM3 Red Blood Count 3.78 MIL/MM3 3.57 MIL/MM3 Hemoglobin 12.2 GM/DL 11.4 GM/DL Hematocrit 36.0 % 34.1 % Mean Corpuscular Volume 95.4 FL 95.4 FL Mean Corpuscular Hemoglobin 32.2 PG 31.9 PG Mean Corpuscular Hemoglobin Concent 33.7 % 33.4 % Red Cell Distribution Width 13.1 % 13.0 % Platelet Count 218 TH/MM3 185 TH/MM3 Mean Platelet Volume 8.7 FL 9.2 FL Neutrophils (%) (Auto) 47.3 % 66.0 % Lymphocytes (%) (Auto) 43.8 % 26.7 % Monocytes (%) (Auto) 7.5 % 6.7 % Eosinophils (%) (Auto) 0.7 % 0.1 % Basophils (%) (Auto) 0.7 % 0.5 % Neutrophils # (Auto) 3.1 TH/MM3 4.8 TH/MM3 Lymphocytes # (Auto) 2.9 TH/MM3 1.9 TH/MM3 Monocytes # (Auto) 0.5 TH/MM3 0.5 TH/MM3 Eosinophils # (Auto) 0.0 TH/MM3 0.0 TH/MM3 Basophils # (Auto) 0.0 TH/MM3 0.0 TH/MM3 CBC Comment DIFF FINAL DIFF FINAL Differential Comment Blood Urea Nitrogen 14 MG/DL 8 MG/DL Creatinine 0.92 MG/DL 0.75 MG/DL Random Glucose 92 MG/DL 102 MG/DL Total Protein 8.0 GM/DL 6.7 GM/DL Albumin 4.0 GM/DL 3.3 GM/DL Calcium Level 8.6 MG/DL 8.1 MG/DL Alkaline Phosphatase 69 U/L 59 U/L Aspartate Amino Transf (AST/SGOT) 22 U/L 17 U/L Alanine Aminotransferase (ALT/SGPT) 25 U/L 21 U/L Total Bilirubin 0.2 MG/DL 0.2 MG/DL Sodium Level 139 MEQ/L 140 MEQ/L Potassium Level 3.5 MEQ/L 3.4 MEQ/L Chloride Level 106 MEQ/L 106 MEQ/L Carbon Dioxide Level 28.3 MEQ/L 27.2 MEQ/L Anion Gap 5 MEQ/L 7 MEQ/L Estimat Glomerular Filtration Rate 86 ML/MIN 108 ML/MIN Lipase 767 U/L 424 U/L Urine Color LIGHT-YELLOW Urine Turbidity CLEAR Urine pH 7.0 Urine Specific [place] 1.013 Urine Protein NEG mg/dL Urine Glucose (UA) NEG mg/dL Urine Ketones NEG mg/dL Urine Occult Blood MOD Urine Nitrite NEG Urine Bilirubin NEG Urine Urobilinogen LESS THAN 2.0 MG/DL Urine Leukocyte Esterase NEG Urine RBC 4-9 /hpf Urine WBC 0-2 /hpf Urine Squamous Epithelial Cells 0-5 /hpf Microscopic Urinalysis Comment CULT NOT INDICATED Physical Examination HEENT: PERRL; normocephalic; atraumatic; no jaundice. CHEST: CTA CARDIAC: Regular rate and rhythm with no murmur gallop or rubs. ABDOMEN: Soft, nondistended, TTP LUQ and epigastrium; no hepatosplenomegaly; bowel sounds are present in all four quadrants. EXTREMITIES: No clubbing, cyanosis, or edema. SKIN: Normal; no rash; no jaundice. DIETARY WORKER: No focal deficits; alert and oriented times three. (Anisa,Almaz S PULVERIZING AND SIFTING OPERATOR) Assessment and Plan Plan ASSESSMENT - abd pain, n/v, elevated lipase - ?pancreatitis vs pseudocyst. pt did have lipse 767 on admission has dropped to 424 and pt pain and nausea improved. CT showing slight enlargement pseudocyst from 7 mo ago, is now 6x6.9x5.8 cm. (was 5.5x61x5.7cm) CT showed no other acute abnormalities. trying clears. PLAN - clear liquids - monitor lipase - trial Creon with meals - if n/v and pain worsens or returns she will need EUS - supportive care This pt seen by myself and Dr Giordano and this note is written on his behalf (Almaz Lange) Physician Comments Seen and examined with BRENT, increase in size of pseudocyst. Symptoms improved today. Repeat EUS with drainage if symptoms worsen. Creon started, low fat diet. Repeat labs. Will follow, thankyou (Laila Giordano MD) Almaz Lange Mar 24, 2017 16:44 Laila Giordano MD Mar 24, 2017 17:00
[2017-03-24] MEDS: LIPASE/PROTEASE/AMYLASE (24,000/76,000/120,000) CAP PO SCH (18:10)
[2017-03-24 20:10] VITALS: BP 108/60; PULSE 82; RESP 16; TEMP 99.1; O2SAT 99
[2017-03-25 00:10] VITALS: BP 106/66; PULSE 84; RESP 16; TEMP 98.9; O2SAT 99
[2017-03-25 05:10] LABS: AUTOMATED NEUTROPHIL # 2.9 TH/MM3 (1.8-7.7); BASOPHIL % 0.7 % (0.0-2.0); EOSINOPHIL % 0.9 % (0.0-4.0); HEMATOCRIT 33.6 % (35.0-46.0); HEMO FLAGS DIFF FINAL; LYMPH % 38.9 % (9.0-44.0); LYMPHOCYTE # 2.1 TH/MM3 (1.0-4.8); MEAN CELL VOLUME 94.8 FL (80.0-100.0); MEAN CORPUSCULAR HEMOGLOBIN 32.5 PG (27.0-34.0); MEAN CORPUSCULAR HGB CONC 34.3 % (32.0-36.0); MONO % 7.3 % (0.0-8.0); NEUT % 52.2 % (16.0-70.0); PLATELET COUNT 169 TH/MM3 (150-450); RED BLOOD COUNT 3.54 MIL/MM3 (4.00-5.30); RED CELL DISTRIBUTION WIDTH 12.6 % (11.6-17.2); WHITE BLOOD COUNT 5.5 TH/MM3 (4.0-11.0)
[2017-03-25 05:29] LABS: POTASSIUM 3.4 MEQ/L (3.5-5.1)
[2017-03-25 08:00] VITALS: BP 109/62; PULSE 83; RESP 18; TEMP 96.9; O2SAT 100
--- NOTE | 2017-03-25 08:07 | HHI.PR ---
Subjective Remarks The patient is in bed she appears in not acute distress. No nausea no vomiting she has no abdominal pain. Had a bowel movement in the morning. No fever or chills. Feels comfortable to go home. Advanced diet. Discharge home when cleared by GI. Objective Vitals Vital Signs Date Time Temp Pulse Resp B/P (MAP) Pulse Ox O2 Delivery O2 Flow Rate FiO2 03/25/17 00:10 98.9 84 16 106/66 (79) 99 03/24/17 20:10 99.1 82 16 108/60 (76) 99 03/24/17 19:31 Room Air 03/24/17 16:00 98.4 80 18 111/75 (87) 100 03/24/17 12:00 98.0 78 18 106/68 (81) 98 I/O 03/24/17 03/24/17 03/24/17 03/25/17 03/25/17 03/25/17 07:00 15:00 23:00 07:00 15:00 23:00 Intake Total 2000 ml 480 ml 1096 ml Balance 2000 ml 480 ml 1096 ml Intake Oral 0 ml 480 ml 240 ml IV Total 2000 ml 856 ml # Voids 1 3 1 2 # Bowel Movements 0 0 0 Result Diagram: 03/25/17 0353 03/25/17 035 Imaging Last Impressions Abdomen/Pelvis CT 03/23/172202 Signed Impressions: Service Date/Time: Thursday, March 23, 2017 23:30 - CONCLUSION: 1. No acute abnormality demonstrated. 2. Pseudocyst of the pancreatic tail measures slightly larger over the past 7 months. No acute inflammatory changes are demonstrated. 3. Stable, benign 2.3 cm cyst of the left kidney. Levi Recinos MD Objective Remarks GENERAL: Young black female in no acute distress, but in obvious pain. HEENT: PERRLA, EOMI. No scleral icterus or conjunctival pallor. No lid lag or facial droop. CARDIOVASCULAR: Regular rate and rhythm. No obvious murmurs to auscultation. No chest tenderness to palpation. RESPIRATORY: No obvious rhonchi or wheezing. Clear to auscultation. Breath sounds equal bilaterally. GASTROINTESTINAL: Abdomen soft, epigastric tenderness to palpation, nondistended. BS normal. MUSCULOSKELETAL: Extremities without clubbing, cyanosis, or edema. No obvious deformities. NEUROLOGICAL: Awake, alert and oriented x4. No focal neurologic deficits. Moving both upper and lower extremities spontaneously. A/P Problem List: (1) Pancreatitis ICD Code: K85.90 - Acute pancreatitis without necrosis or infection, unspecified (2) Intractable abdominal pain ICD Code: R10.9 - Unspecified abdominal pain (3) Dehydration ICD Code: E86.0 - Dehydration Assessment and Plan Pancreatitis: Recurrent, h/o Pancreatic Cyst s/p drainage 2013, recent admit 2016 w/ Pseudocyst, now w/ recurrent pancreatitis. Lipase [address] on admission. Trending down. CT Abd/Pelvis reviewed and findings discussed with the patient, pseudocyst in pancreatic tail is enlarged. GI Consult. Continue VF, analgesics/antiemetics. Advance diet per GI recommendations Seen by Dr Pasquale MAYNARD, appreciate recommendations. Repeat EUS with drainage if symptoms worsen. Creon started, low fat diet. Intractable Abd Pain: Secondary to above, continue w/ Analgesics/antiemetics Dehydration: GFR 86, IVF for hydration, repeat labs in am. DVT Prophylaxis: SCD/Teds. Case management consulted for DC planning as needed. Case discussed withe the patient and the nurse Patient is improving no more abdominal pain lipase improved able to tolerate food. Discharge home if cleared by GI. Tahira Rosado MD Mar 25, 2017 08:07
[2017-03-25] MEDS: SODIUM CHLORIDE 0.9% FLUSH 10 ML FLUSH IV FLUSH SCH (09:00)
[2017-03-25] MEDS: LIPASE/PROTEASE/AMYLASE (24,000/76,000/120,000) CAP PO SCH ×2 (10:01→15:17)
[2017-03-25] MEDS: DOCUSATE SODIUM 50 MG/SENNA 8.6 MG TAB PO SCH (10:01)
[2017-03-25] MEDS: FAMOTIDINE 20 MG/2 ML VIAL IV PUSH SCH (10:06)
[2017-03-25] MEDS ORDERED: FAMO20TA2 PO (11:28)
[2017-03-25] MEDS ORDERED: CREON24 PO (11:28)
[2017-03-25] MEDS ORDERED: NORC5TAB PO (11:28)
[2017-03-25] MEDS ORDERED: PERI PO (11:28)
--- NOTE | 2017-03-25 11:28 | HHI.DS ---
Discharge Summary Admission Date Mar 23, 2017 at 22:10 Discharge Date: Mar 25, 2017 Admitting Diagnosis acute pancreatitis (1) Pancreatitis ICD Code: K85.90 - Acute pancreatitis without necrosis or infection, unspecified (2) Intractable abdominal pain ICD Code: R10.9 - Unspecified abdominal pain (3) Dehydration ICD Code: E86.0 - Dehydration Procedures none Brief History - From Admission This is a 31-year-old female with a PMH of GERD and Pancreatitis w/ Pancreatic Cyst Drainage 2013 who presented to the ER with complaints of severe abdominal pain x1 day. States symptoms similar to previous episodes of pancreatitis. + associated nausea/vomiting and decreased PO intake. Previous admit 07/04/16 for Pancreatitis, CT Abd/Pelvis 07/04/16 w/ 5.4 x 6cm pseudocyst, s/p eval by Dr. Grossman, no intervention required at that time as Pancreatitis resolved. Recommended follow up following discharge, however pt states she's been unable to follow up. On arrival, BP 137/93, HR 83, O2 sat 100% on RA, Afebrile. CBC unremarkable. Chemistry essentially unremarkable except for GFR 86. Lipase 767. UA negative. CBC/BMP: 03/25/17 0353 03/25/17 0353 Significant Findings Laboratory Tests Test 03/23/17 20:45 03/23/17 21:35 03/24/17 04:48 03/25/17 03:53 Red Blood Count 3.78 MIL/MM3 (4.00-5.30) 3.57 MIL/MM3 (4.00-5.30) 3.54 MIL/MM3 (4.00-5.30) Estimat Glomerular Filtration Rate 86 ML/MIN (>89) Lipase 767 U/L (73-393) 424 U/L (73-393) Urine Occult Blood MOD (NEG) Urine RBC 4-9 /hpf (0-3) Hemoglobin 11.4 GM/DL (11.6-15.3) 11.5 GM/DL (11.6-15.3) Hematocrit 34.1 % (35.0-46.0) 33.6 % (35.0-46.0) Albumin 3.3 GM/DL (3.4-5.0) Calcium Level 8.1 MG/DL (8.5-10.1) Potassium Level 3.4 MEQ/L (3.5-5.1) 3.4 MEQ/L (3.5-5.1) Blood Urea Nitrogen 5 MG/DL (7-18) Imaging Last Impressions Abdomen/Pelvis CT 03/23/17 2203 Signed Impressions: Service Date/Time: Thursday, March 23, 2017 23:30 - CONCLUSION: 1. No acute abnormality demonstrated. 2. Pseudocyst of the pancreatic tail measures slightly larger over the past 7 months. No acute inflammatory changes are demonstrated. 3. Stable, benign 2.3 cm cyst of the left kidney. Levi Recinos MD PE at Discharge GENERAL: Young black female in no acute distress, but in obvious pain. HEENT: PERRLA, EOMI. No scleral icterus or conjunctival pallor. No lid lag or facial droop. CARDIOVASCULAR: Regular rate and rhythm. No obvious murmurs to auscultation. No chest tenderness to palpation. RESPIRATORY: No obvious rhonchi or wheezing. Clear to auscultation. Breath sounds equal bilaterally. GASTROINTESTINAL: Abdomen soft, epigastric tenderness to palpation, nondistended. BS normal. MUSCULOSKELETAL: Extremities without clubbing, cyanosis, or edema. No obvious deformities. NEUROLOGICAL: Awake, alert and oriented x4. No focal neurologic deficits. Moving both upper and lower extremities spontaneously. Hospital Course Pancreatitis: Recurrent, h/o Pancreatic Cyst s/p drainage 2013, recent admit 2016 w/ Pseudocyst, now w/ recurrent pancreatitis. Lipase 767 on admission. Lipase is back to normal. CT Abd/Pelvis reviewed and findings discussed with the patient, pseudocyst in pancreatic tail is enlarged. GI Consult. Continue VF, analgesics/antiemetics. Advance diet per GI recommendations Seen by Dr Pasquale MAYNARD, appreciate recommendations. Repeat EUS with drainage if symptoms worsen. Creon started, low fat diet. Intractable Abd Pain: Secondary to above, continue w/ Analgesics/antiemetics Dehydration: GFR 86, IVF for hydration, repeat labs in am. DVT Prophylaxis: SCD/Teds. Case management consulted for DC planning as needed. Case discussed withe the patient and the nurse Patient is improving no more abdominal pain lipase improved able to tolerate food. Cleared by GI to follow-up as outpatient. Discharge home in stable condition to follow-up with PCP and consultants as outpatient Pt Condition on Discharge: Stable Discharge Disposition: Discharge Home Discharge Time: > 30 minutes Discharge Instructions DIET: Follow Instructions for: Low Fat Diet Activities you can perform: Regular-No Restrictions Follow up Referrals: Gastroenterology - 2 Weeks with Laila Giordano MD PCP Follow-up - 2-3 Days New Medications: Famotidine (Famotidine) 20 Mg Tab 20 MG PO BID for gerd, #60 TAB 0 Refills Hydrocodone-Acetaminophen ([place]) 5 Mg-325 Mg Tab 1 TAB PO Q6H PRN for PAIN, #20 TAB 0 Refills Pancrelipase (Creon) 24,000-76,000-120,000 Units Cap 1 CAP PO TIDAC for Nutritional Supplement for 30 Days, #60 CAP Sennosides-Docusate Sodium (Gnp Senna Plus 8.6-50 mg) 8.6 Mg-50 Mg Tab 1 TAB PO BID for Constipation, #60 TAB Tahira Rosado MD Mar 25, 2017 11:28
[2017-03-25 12:00] VITALS: BP 118/71; PULSE 74; RESP 18; TEMP 98.3; O2SAT 100
--- NOTE | 2017-03-25 14:21 | HHI.GIFU ---
Subjective Remarks Pt OOB preparing to take a shower. She reports good appetite, had regular diet for lunch and liquid diet for breakfast. Denies nausea, vomiting, abdominal pain. + BM today, denies loose or watery stools. (Barbara Schumacher) Objective Vitals I&O Vital Signs Date Time Temp Pulse Resp B/P (MAP) Pulse Ox O2 Delivery O2 Flow Rate FiO2 03/25/17 08:00 96.9 83 18 109/62 (78) 100 03/25/17 00:10 98.9 84 16 106/66 (79) 99 03/24/17 20:10 99.1 82 16 108/60 (76) 99 03/24/17 19:31 Room Air 03/24/17 16:00 98.4 80 18 111/75 (87) 100 I/O 03/24/17 03/24/17 03/24/17 03/25/17 03/25/17 03/25/17 06:59 14:59 22:59 06:59 14:59 22:59 Intake Total 2000 ml 480 ml 1096 ml Balance 2000 ml 480 ml 1096 ml Intake Oral 0 ml 480 ml 240 ml IV Total 2000 ml 856 ml # Voids 1 4 2 # Bowel Movements 0 0 0 Laboratory Laboratory Tests Test 03/25/17 03:53 White Blood Count 5.5 Red Blood Count 3.54 Hemoglobin 11.5 Hematocrit 33.6 Mean Corpuscular Volume 94.8 Mean Corpuscular Hemoglobin 32.5 Mean Corpuscular Hemoglobin Concent 34.3 Red Cell Distribution Width 12.6 Platelet Count 169 Mean Platelet Volume 9.2 Neutrophils (%) (Auto) 52.2 Lymphocytes (%) (Auto) 38.9 Monocytes (%) (Auto) 7.3 Eosinophils (%) (Auto) 0.9 Basophils (%) (Auto) 0.7 Neutrophils # (Auto) 2.9 Lymphocytes # (Auto) 2.1 Monocytes # (Auto) 0.4 Eosinophils # (Auto) 0.0 Basophils # (Auto) 0.0 CBC Comment DIFF FINAL Differential Comment Blood Urea Nitrogen 5 Creatinine 0.73 Random Glucose 86 Calcium Level 8.5 Sodium Level 140 Potassium Level 3.4 Chloride Level 105 Carbon Dioxide Level 28.0 Anion Gap 7 Estimat Glomerular Filtration Rate 112 Lipase 330 Imaging Last Impressions Abdomen/Pelvis CT 11/19/17 2203 Signed Impressions: Service Date/Time: Thursday, March 23, 2017 23:30 - CONCLUSION: 1. No acute abnormality demonstrated. 2. Pseudocyst of the pancreatic tail measures slightly larger over the past 7 months. No acute inflammatory changes are demonstrated. 3. Stable, benign 2.3 cm cyst of the left kidney. Levi Recinos MD Physical Exam HEENT: Normocephalic; atraumatic; no jaundice. . CHEST: CTA CARDIAC: RRR ABDOMEN: Soft, nondistended, mild epigastric tenderness; no hepatosplenomegaly ; bowel sounds are present in all four quadrants. EXTREMITIES: No clubbing, cyanosis, or edema SKIN: Normal; no rash; no jaundice. INSPECTOR BOILER: No focal deficits; alert and oriented times three. (Barbara Schumacher) Assessment and Plan Plan ASSESSMENT - Abd pain, n/v, elevated lipase - ?pancreatitis vs pseudocyst. History of pancreatic cyst S/P drainage 2013. CT scan abdomin and pelvis W/O IV contrast ( 03/23/17)---> No acute abnormality demonstrated. Pseudocyst of pancreatic tail measures slightly larger over the past 7 months. No acute inflammatory changes are demonstrated. Stable, benign 2.3 cm cyst of left kidney. Lipse 767 on admission,currently 330. Pt denies N/V/abdominal pain. Tolerating regular diet. Pt advised to excelsior picker samples of Zenpep at [facility] after discharge. PLAN - [facility] - Monitor lipase outpatient - Zenpep samples to be dispensed at [facility] - If N/V/abdominal pain returns, then possible EUS outpatient - Supportive care - Follow up in GI office in 1-2 weeks This pt seen by myself and Dr Giordano and this note is written on his behalf (Barbara Schumacher) Physician Comments Seen and examined with BRENT, feeling better. Labs improving, tolerating po diet. EUS on hold for now. GI will sign off, out patient fu recommended. Thankyou (Laila Giordano MD) Barbara Schumacher Mar 25, 2017 14:21 Laila Giordano MD Mar 25, 2017 16:01
[2017-03-25] MEDS ORDERED: POTASSIUM CHLORIDE 10 MEQ CONTROLLED RELEASE TAB PO ONE (14:30)
== END 2017-03-25 16:48 | disposition home or self-care (01) ==
LOC: NEPE 20:20 → NEDA 22:10 → N06A 23:46
PROVIDERS: ADMIT Hospitalist; ATTEND Hospitalist
DX: K85.90 Acute pancreatitis without necrosis or infection, unspecified (principal); K86.1 Other chronic pancreatitis; N28.1 Cyst of kidney, acquired; K86.3 Pseudocyst of pancreas; E86.0 Dehydration; K21.9 Gastro-esophageal reflux disease without esophagitis
CPT/HCPCS: 74176; 80048; 80053; 81001; 83690; 84703; 85025; 96361; 96365; 96366; 96375; 96376; 99285; C9113; G0378; J1200; J1885; J2270; J3480; J7030

== ENCOUNTER 2017-03-26 01:11 | Emergency (ER) | payer MEDICAID ==
[~2017-03-26 01:11] MED LIST changes: +CREON24 PO; -DICY10 PO; +FAMO20TA2 PO; -HYDR-3533 PO; +NORC5TAB PO; +PERI PO; -RANI150T PO; -TYLE325T PO; -ZOFR4TAB3 SL
[2017-03-26 01:15] VITALS: BP 143/89; PULSE 95; RESP 20; TEMP 97.6; O2SAT 100
--- NOTE | 2017-03-26 01:56 | PD ---
HPI Chief Complaint: Abdominal Pain Time Seen by Provider: 01:22 Travel History International Travel<30 days: No Contact w/Intl Traveler<30days: No Traveled to known affect area: No History of Present Illness HPI The patient is a 31 year old female who presents to the [facility] emergency department with a history of pancreatitis with intermittent exacerbations of pain that first began at 2013. The patient reports that at that time she was diagnosed with a pancreatic pseudocyst. The patient had an exacerbation of her pain that brought her into the emergency department on March 23, 2017. The patient was admitted to the hospital and discharged yesterday at 3 PM. She reports that she went to the pharmacy to fill her prescriptions, however she did not have her ID with him, therefore they would not fill the prescriptions. She reports that she uses a passport for her IUD. She reports that she did not bring this to the hospital. By the time, she was able to get home the pharmacy was closed. She reports that the pain increased with time throughout the evening this she came to the emergency department for evaluation and treatment again. She reports having one episode of nausea and vomiting this evening. She denies having any diarrhea. She reports that she has been taking sips of liquids. The patient reports the pain is in the left upper quadrant of the abdomen and goes into her radiates into her back. On review of systems, the patient denies having any recent fevers,cough, congestion , neck pain, chest pain, shortness of breath, diarrhea, urinary symptoms, or neurologic symptoms. LMP: At the beginning of March 2017 [facility] Past Medical History Narrative Medical The patient has history of pancreatitis dx in 2013, acid reflux, migraine headache Hx Anticoagulant Therapy: No Cancer: No Cardiovascular Problems: No Chemotherapy: No Cerebrovascular Accident: No Diabetes: No Diminished Hearing: No Endocrine: No Gastrointestinal Disorders: No GERD: Yes Genitourinary: No Immune Disorder: No Musculoskeletal: No Neurologic: No Psychiatric: No Reproductive: No Respiratory: No Migraines: Yes Pancreatitis: Yes Tetanus Vaccination: < 5 Years ?: Not : 2 Para: 2 Miscarriage: 0 Past Surgical History Narrative Surgical The patient has a history of cervical biopsy, history of pseudocyst drainage in the past, history of 1. Section: Yes (x1) Gynecologic Surgery: Yes (LEEP/cervical biopsy) Hysterectomy: No Other Surgery: No Social History Alcohol Use: No Tobacco Use: No Substance Use: No Allergies-Medications (Allergen,Severity, Reaction): Coded Allergies: No Known Allergies (Unverified Allergy, Unknown, 03/23/17) Reported Meds & Prescriptions Reported Meds & Active Scripts Active [place] (Hydrocodone-Acetaminophen) 5 Mg-325 Mg Tab 1 Tab PO Q6H PRN Famotidine 20 Mg Tab 20 Mg PO BID Creon (Amylase/Lipase/Protease) 24,000-76,000-120,000 Units Cap 1 Cap PO TIDAC 30 Days Gnp Senna Plus 8.6-50 mg (Sennosides-Docusate Sodium) 8.6 Mg-50 Mg Tab 1 Tab PO BID Review of Systems Except as stated in HPI: all other systems reviewed are Neg General / Constitutional: No: Fever Eyes: No: Visual changes HENT: No: Headaches Cardiovascular: No: Chest Pain or Discomfort Respiratory: No: Shortness of Breath Gastrointestinal: Positive: Nausea, Vomiting, Abdominal Pain, No: Hematemesis, Changes in Bowel Habits, Indigestion, Loss of Appetite Genitourinary: No: Dysuria Musculoskeletal: No: Pain Skin: No Rash Neurologic: No: Weakness, Focal Abnormalities, Change in Mentation, Slurred Speech, Sensory Disturbance Psychiatric: No: Depression Endocrine: No: Polydipsia Hematologic/Lymphatic: No: Easy Bruising Physical Exam Narrative General: The patient is a well-developed well-nourished female in no acute distress. Head and Neck exam: Head is normocephalic atraumatic. Eyes: EOMI, pupils are equal round and reactive to light. Nose: Midline septum with pink mucous membranes Mouth: Dentition unremarkable. Moist mucus membranes. Posterior oropharynx is not erythematous. No tonsillar hypertrophy. Uvula midline. Airway patent. Neck: No palpable lymphadenopathy. No nuchal rigidity. No thyromegaly. Cardiovascular: Regular rate and rhythm without murmurs, gallops, or rubs. Lungs: Clear to auscultation bilaterally. No wheezes, rhonchi, or rales. Abdomen: Soft, without tenderness to palpation in all 4 quadrants of the abdomen. No guarding, rebound, or rigidity. Normal bowel sounds are audible. No tenderness on palpation of McBurney point. Extremities: No clubbing, cyanosis, or edema. 2+ pulses in all 4 extremities. No calf tenderness on palpation. Back: No spinous process tenderness to palpation. No costovertebral angle tenderness to palpation. Neurologic Exam: Grossly nonfocal. Skin Exam: No rash noted. Intact skin that is warm and dry. Data Data Last Documented VS Vital Signs Date Time Temp Pulse Resp B/P (MAP) Pulse Ox O2 Delivery O2 Flow Rate FiO2 03/26/17 01:15 97.6 95 20 143/89 (107) 100 Orders Orders Hydromorphone Pf Inj (Dilaudid Pf Inj) (03/26/17 02:00) Promethazine Inj (Phenergan Inj) (03/26/17 02:00) [facility] Medical Decision Making Medical Screen Exam Complete: Yes Emergency Medical Condition: Yes Medical Record Reviewed: Yes Differential Diagnosis Recurrence of pain due to being unable to fill her prescription medications, versus exacerbation of pancreatitis Narrative Course During the course of the patients emergency department visit, the patients history, examination, and differential diagnosis were reviewed with the patient. The patient was placed on a monitoring manager with oximetry and frequent blood pressure monitoring. The patient's electronic medical record was reviewed. The patient had blood work done yesterday prior to discharge. The patient lipase level was found to be within normal limits. The patient during her hospitalization also underwent a CT scan of the abdomen and pelvis and a consultation with a veterans contact representative, Dr. Giordano. Based on this and the fact that the patient has a benign abdominal examination at this time IV access was not placed in the patient and additional imaging was not ordered. I suspect that the patient's recurrence of abdominal pain is related to her pain medication wearing off. The patient was provided hydromorphone 0.5 mg IM, Phenergan 12.5 mg IM. The patient reports that she will be able to fill her prescriptions in the morning as she does have her passport at home. The patient reports that she does have a ride home available at this time. The patient will be discharged from the emergency department in stable condition. The patient is resting comfortably and feels better, is alert and in no distress. The patients results and examination findings were discussed with the patient. The repeat examination is unremarkable and benign. The history, exam, diagnostic testing, and current condition do not suggest any significant pathology to warrant further testing, continued ED treatment, admission, or surgical evaluation at this point. The vital signs have been stable. The patient does not have uncontrollable pain, intractable vomiting, or other significant symptoms. The patient's condition is stable and appropriate for discharge. The patient will pursue further outpatient evaluation with a primary care physician or other designated or consulting physician as indicated in the discharge instructions. The patient expressed understanding and was agreeable with this plan. Diagnosis Primary Impression: Abdominal pain Qualified Codes: R10.12 - Left upper quadrant pain Additional Impressions: Pancreatitis Qualified Codes: K86.1 - Other chronic pancreatitis Pancreatic pseudocyst Referrals: Laila Giordano MD 1 week [facility] 2 days Patient Instructions: General Instructions, Pancreatitis (ED) Med/Other Pt SpecificInfo: No Change to Meds Disposition: 01 DISCHARGE HOME Condition: Stable Yancy Gonzalez MD Mar 26, 2017 01:56
[2017-03-26] MEDS ORDERED: HYDROmorphone HCL PF 0.5 MG/0.5 ML SYRINGE IM ONE (02:00)
[2017-03-26] MEDS ORDERED: PROMETHAZINE INJ 25 MG/ML VIAL IM ONE (02:00)
== END 2017-03-26 02:50 | disposition home or self-care (01) ==
LOC: NEPE 01:11
DX: R10.12 Left upper quadrant pain (principal); K85.90 Acute pancreatitis without necrosis or infection, unspecified; K86.3 Pseudocyst of pancreas
CPT/HCPCS: 96372; 99283; J1170; J2550

== ENCOUNTER 2017-03-28 11:52 | Emergency (ER) | payer MEDICAID ==
[~2017-03-28] VITALS: Ht 160 cm; Wt 60.0 kg
[2017-03-28 11:54] VITALS: BP 120/84; PULSE 82; RESP 12; TEMP 98.3; O2SAT 97
[2017-03-28 13:47] LABS: AUTOMATED NEUTROPHIL # 6.6 TH/MM3 (1.8-7.7); BASOPHIL % 0.3 % (0.0-2.0); EOSINOPHIL % 0.3 % (0.0-4.0); HEMO FLAGS DIFF FINAL; LYMPH % 15.8 % (9.0-44.0); LYMPHOCYTE # 1.4 TH/MM3 (1.0-4.8); MEAN CORPUSCULAR HGB CONC 34.1 % (32.0-36.0); MONO % 7.6 % (0.0-8.0); PLATELET COUNT 223 TH/MM3 (150-450); RED BLOOD COUNT 4.04 MIL/MM3 (4.00-5.30); RED CELL DISTRIBUTION WIDTH 12.7 % (11.6-17.2); WHITE BLOOD COUNT 8.7 TH/MM3 (4.0-11.0)
[2017-03-28 14:13] LABS: ALKALINE PHOSPHATASE 75 U/L (45-117); ALT (GPT) 26 U/L (10-53); ANION GAP 5 MEQ/L (5-15); AST (GOT) 21 U/L (15-37); BICARBONATE 28.7 MEQ/L (21.0-32.0); BLOOD UREA NITROGEN 9 MG/DL (7-18); CHLORIDE 100 MEQ/L (98-107); GLOMERULAR FILTRATION RATE 78 ML/MIN (>89); POTASSIUM 3.4 MEQ/L (3.5-5.1); SODIUM (NA) 134 MEQ/L (136-145); TOTAL BILIRUBIN ADULT 0.5 MG/DL (0.2-1.0)
[2017-03-28 14:36] LABS: BLOOD, URINE LARGE (NEG); GLUCOSE,URINE NEG (NEG); KETONE, URINE 10 mg/dL (NEG); MUCUS URINE FEW /lpf (OCC); NITRITE,URINE NEG (NEG); PH, URINE 6.5 (5.0-8.5); SQUAMOUS EPITHELIAL CELL URINE 7 /hpf (0-5); TRANSITIONAL EPI CELLS, URINE <1 /hpf; URINE COLOR YELLOW (YELLW/STRAW)
[2017-03-28 14:37] LABS: COMMENT (UR) CULT NOT INDICATED; CULTURE IF INDICATED CULT NOT INDICATED
[2017-03-28] MEDS ORDERED: ZOFR4TAB3 SL (14:48)
--- NOTE | 2017-03-28 14:53 | PD ---
Physical Exam Date Seen by Provider: Mar 28, 2017 Time Seen by Provider: 14:45 Narrative This patient presents complaining with epigastric pain related to pancreatitis. It's a long-standing history of pancreatitis associated with pseudocyst. She states that the medications that she has been given previously are not helping. Data Data Last Documented VS Vital Signs Date Time Temp Pulse Resp B/P (MAP) Pulse Ox O2 Delivery O2 Flow Rate FiO2 03/28/17 11:54 98.3 82 12 120/84 (96) 97 Orders Orders Complete Blood Count With Diff (03/28/17 13:19) Comprehensive Metabolic Panel (03/28/17 13:19) Urinalysis - C+S If Indicated (03/28/17 13:19) Ed Urine Pregnancytest Poc (03/28/17 13:19) Lipase (03/28/17 13:19) Labs Laboratory Tests Test 03/28/17 13:30 White Blood Count 8.7 TH/MM3 Red Blood Count 4.04 MIL/MM3 Hemoglobin 12.9 GM/DL Hematocrit 38.0 % Mean Corpuscular Volume 94.0 FL Mean Corpuscular Hemoglobin 32.0 PG Mean Corpuscular Hemoglobin Concent 34.1 % Red Cell Distribution Width 12.7 % Platelet Count 223 TH/MM3 Mean Platelet Volume 9.0 FL Neutrophils (%) (Auto) 76.0 % Lymphocytes (%) (Auto) 15.8 % Monocytes (%) (Auto) 7.6 % Eosinophils (%) (Auto) 0.3 % Basophils (%) (Auto) 0.3 % Neutrophils # (Auto) 6.6 TH/MM3 Lymphocytes # (Auto) 1.4 TH/MM3 Monocytes # (Auto) 0.7 TH/MM3 Eosinophils # (Auto) 0.0 TH/MM3 Basophils # (Auto) 0.0 TH/MM3 CBC Comment DIFF FINAL Differential Comment Urine Color YELLOW Urine Turbidity HAZY Urine pH 6.5 Urine Specific [place] 1.022 Urine Protein 100 mg/dL Urine Glucose (UA) NEG mg/dL Urine Ketones 10 mg/dL Urine Occult Blood LARGE Urine Nitrite NEG Urine Bilirubin NEG Urine Urobilinogen LESS THAN 2.0 MG/DL Urine Leukocyte Esterase NEG Urine RBC 79 /hpf Urine WBC 6 /hpf Urine Squamous Epithelial Cells 7 /hpf Urine Transitional Epithelial Cells <1 /hpf Urine Amorphous Sediment RARE Urine Mucus FEW /lpf Microscopic Urinalysis Comment CULT NOT INDICATED Blood Urea Nitrogen 9 MG/DL Creatinine 1.00 MG/DL Random Glucose 96 MG/DL Total Protein 8.6 GM/DL Albumin 4.1 GM/DL Calcium Level 9.4 MG/DL Alkaline Phosphatase 75 U/L Aspartate Amino Transf (AST/SGOT) 21 U/L Alanine Aminotransferase (ALT/SGPT) 26 U/L Total Bilirubin 0.5 MG/DL Sodium Level 134 MEQ/L Potassium Level 3.4 MEQ/L Chloride Level 100 MEQ/L Carbon Dioxide Level 28.7 MEQ/L Anion Gap 5 MEQ/L Estimat Glomerular Filtration Rate 78 ML/MIN Lipase 268 U/L MDM Supervised Visit with LINDSAY: Yes Narrative Course I, Dr. Luna, have reviewed the advance practice practitioner's documentation and am in agreement, met with the patient face to face, made the diagnosis, and the medical decision making was done by me. *My assessment and Findings: Her abdomen is soft. She does not appear clinically dehydrated. Please see Vane Monae NP's note for results of laboratory and radiographic evaluation, ED course, final diagnosis and disposition Scripts Ondansetron Odt (Zofran Odt) 4 Mg Tab 4 MG SL Q6HR Y for Nausea/Vomiting, #15 TAB 0 Refills Prov: Vane Monae 03/28/17 Araceli Luna MD Mar 28, 2017 14:53
--- NOTE | 2017-03-28 15:15 | PD ---
HPI . Abdominal pain Chief Complaint: GI Complaint Time Seen by Provider: 14:24 Travel History International Travel<30 days: No Contact w/Intl Traveler<30days: No History of Present Illness HPI 31-year-old female presents emergency department for evaluation of abdominal pain. Patient states she has chronic abdominal pain and takes hydrocodone for it but the hydrocodone has not been as effective lately. Patient has history of pancreatitis. Patient states she has decreased appetite and was vomiting yesterday. Patient denies any vomiting today. Patient denies any diarrhea. Patient denies any fever, chills, malaise, shortness breath, chest pain. Patient states she has a cyst on her pancreas and would like it drained. PFSH Past Medical History Hx Anticoagulant Therapy: No Cancer: No Cardiovascular Problems: No Chemotherapy: No Cerebrovascular Accident: No Diabetes: No Diminished Hearing: No Endocrine: No Gastrointestinal Disorders: No GERD: Yes Genitourinary: No Immune Disorder: No Musculoskeletal: No Neurologic: No Psychiatric: No Reproductive: No Respiratory: No Migraines: Yes Pancreatitis: Yes ?: Not LMP: 03/07/17 : 2 Para: 2 Miscarriage: 0 Past Surgical History Section: Yes (x1) Gynecologic Surgery: Yes (LEEP/cervical biopsy) Hysterectomy: No Other Surgery: No Social History Alcohol Use: No Tobacco Use: No Substance Use: No Allergies-Medications (Allergen,Severity, Reaction): Coded Allergies: No Known Allergies (Unverified Allergy, Unknown, 03/23/17) Reported Meds & Prescriptions Reported Meds & Active Scripts Active Zofran Odt (Ondansetron Odt) 4 Mg Tab 4 Mg SL Q6HR PRN [place] (Hydrocodone-Acetaminophen) 5 Mg-325 Mg Tab 1 Tab PO Q6H PRN Famotidine 20 Mg Tab 20 Mg PO BID Creon (Amylase/Lipase/Protease) 24,000-76,000-120,000 Units Cap 1 Cap PO TIDAC 30 Days Gnp Senna Plus 8.6-50 mg (Sennosides-Docusate Sodium) 8.6 Mg-50 Mg Tab 1 Tab PO BID Review of Systems Except as stated in HPI: all other systems reviewed are Neg Physical Exam Narrative GENERAL: Well-nourished, well-developed 31-year-old female patient in no acute distress. Nontoxic appearing. SKIN: Focused skin assessment warm/dry. HEAD: Normocephalic. Atraumatic. EYES: No scleral icterus. No injection or drainage. NECK: Supple, trachea midline. No JVD or lymphadenopathy. CARDIOVASCULAR: Regular rate and rhythm without murmurs, gallops, or rubs. RESPIRATORY: Breath sounds equal bilaterally. No accessory muscle use. GASTROINTESTINAL: Abdomen soft, non-tender, nondistended. MUSCULOSKELETAL: No cyanosis, or edema. BACK: Nontender without obvious deformity. No CVA tenderness. Data Data Last Documented VS Vital Signs Date Time Temp Pulse Resp B/P (MAP) Pulse Ox O2 Delivery O2 Flow Rate FiO2 03/28/17 11:54 98.3 82 12 120/84 (96) 97 Orders Orders Complete Blood Count With Diff (03/28/17 13:19) Comprehensive Metabolic Panel (03/28/17 13:19) Urinalysis - C+S If Indicated (03/28/17 13:19) Ed Urine Pregnancytest Poc (03/28/17 13:19) Lipase (03/28/17 13:19) Ed Discharge Order (03/28/17 15:17) Potassium Chloride (Kcl) (03/28/17 15:45) Labs Laboratory Tests Test 03/28/17 13:30 White Blood Count 8.7 TH/MM3 Red Blood Count 4.04 MIL/MM3 Hemoglobin 12.9 GM/DL Hematocrit 38.0 % Mean Corpuscular Volume 94.0 FL Mean Corpuscular Hemoglobin 32.0 PG Mean Corpuscular Hemoglobin Concent 34.1 % Red Cell Distribution Width 12.7 % Platelet Count 223 TH/MM3 Mean Platelet Volume 9.0 FL Neutrophils (%) (Auto) 76.0 % Lymphocytes (%) (Auto) 15.8 % Monocytes (%) (Auto) 7.6 % Eosinophils (%) (Auto) 0.3 % Basophils (%) (Auto) 0.3 % Neutrophils # (Auto) 6.6 TH/MM3 Lymphocytes # (Auto) 1.4 TH/MM3 Monocytes # (Auto) 0.7 TH/MM3 Eosinophils # (Auto) 0.0 TH/MM3 Basophils # (Auto) 0.0 TH/MM3 CBC Comment DIFF FINAL Differential Comment Urine Color YELLOW Urine Turbidity HAZY Urine pH 6.5 Urine Specific [place] 1.022 Urine Protein 100 mg/dL Urine Glucose (UA) NEG mg/dL Urine Ketones 10 mg/dL Urine Occult Blood LARGE Urine Nitrite NEG Urine Bilirubin NEG Urine Urobilinogen LESS THAN 2.0 MG/DL Urine Leukocyte Esterase NEG Urine RBC 79 /hpf Urine WBC 6 /hpf Urine Squamous Epithelial Cells 7 /hpf Urine Transitional Epithelial Cells <1 /hpf Urine Amorphous Sediment RARE Urine Mucus FEW /lpf Microscopic Urinalysis Comment CULT NOT INDICATED Blood Urea Nitrogen 9 MG/DL Creatinine 1.00 MG/DL Random Glucose 96 MG/DL Total Protein 8.6 GM/DL Albumin 4.1 GM/DL Calcium Level 9.4 MG/DL Alkaline Phosphatase 75 U/L Aspartate Amino Transf (AST/SGOT) 21 U/L Alanine Aminotransferase (ALT/SGPT) 26 U/L Total Bilirubin 0.5 MG/DL Sodium Level 134 MEQ/L Potassium Level 3.4 MEQ/L Chloride Level 100 MEQ/L Carbon Dioxide Level 28.7 MEQ/L Anion Gap 5 MEQ/L Estimat Glomerular Filtration Rate 78 ML/MIN Lipase 268 U/L MDM Medical Decision Making Medical Screen Exam Complete: Yes Emergency Medical Condition: Yes Differential Diagnosis Differential diagnoses include but not limited to gastroenteritis, pancreatitis , UTI, abdominal pain Narrative Course 31-year-old female presents emergency department for evaluation of abdominal pain. Patient was put on in triage. CBC, CMP, lipase, UA and POC test ordered. Patient was instructed that a pseudoaneurysm on her pancreas is not something that can be surgically removed or drained. Patient's abdomen is nontender on exam. Patient denies any vomiting today. Blood work was unremarkable outside of mild hypokalemia. Patient given 20 mEq potassium chloride at our facility and discharged home with prescription for Zofran. Diagnosis Primary Impression: Abdominal pain Qualified Codes: R10.9 - Unspecified abdominal pain Referrals: Primary Care Physician Patient Instructions: Abdominal Pain (ED), General Instructions Additional Instructions: Please return to emergency department if your symptoms return or worsen. Follow up with your primary care provider. Take Zofran as prescribed for nausea and vomiting. Med/Other Pt SpecificInfo: Prescription(s) given Scripts Ondansetron Odt (Zofran Odt) 4 Mg Tab 4 MG SL Q6HR Y for Nausea/Vomiting, #15 TAB 0 Refills Prov: Vane Monae 03/28/17 Disposition: 01 DISCHARGE HOME Condition: Stable Vane Monae Mar 28, 2017 15:15
[2017-03-28] MEDS ORDERED: POTASSIUM CHLORIDE 20 MEQ CONTROLLED RELEASE TAB PO ONE (15:45)
[2017-03-28 16:20] VITALS: BP 128/86
== END 2017-03-28 16:22 | disposition home or self-care (01) ==
LOC: NEPD 11:52
DX: R10.13 Epigastric pain (principal); E87.6 Hypokalemia; K21.9 Gastro-esophageal reflux disease without esophagitis; Z87.19 Personal history of other diseases of the digestive system; Z79.899 Other long term (current) drug therapy
CPT/HCPCS: 80053; 81001; 83690; 84703; 85025; 99283

== ENCOUNTER 2017-04-06 08:14 | Emergency (ER) | payer SELFPAY ==
[~2017-04-06] VITALS: Ht 160 cm; Wt 70.0 kg
[~2017-04-06 08:14] MED LIST changes: +ZOFR4TAB3 SL
[2017-04-06 08:15] VITALS: BP 150/71; PULSE 103; RESP 16; TEMP 99; O2SAT 100
[2017-04-06] MEDS ORDERED: ONDANSETRON HCL 4 MG/2 ML VIAL IV PUSH ONE (08:45)
[2017-04-06] MEDS ORDERED: ACETAMINOPHEN/HYDROcodone 325 MG/5 MG TAB PO ONE (08:45)
[2017-04-06] MEDS ORDERED: KETOROLAC TROMETHAMINE 30 MG/ML (IVP) VIAL IV PUSH ONE (08:45)
[2017-04-06] MEDS ORDERED: SODIUM CHLOR 0.9% 1000 ML INJ 1,000 ML IV ONE (08:45)
--- NOTE | 2017-04-06 08:49 | PD ---
HPI Chief Complaint: Abdominal Pain Time Seen by Provider: 08:21 Travel History International Travel<30 days: No Contact w/Intl Traveler<30days: No Traveled to known affect area: No History of Present Illness HPI So 31 year-old woman history of pancreatitis who presents to the emergency department recurrent abdominal pain for the past 2 weeks, initially diagnosis acute pancreatitis flare, lipase in the 700s, CT scan unremarkable, several ED visits since that time for the same. Taking oral Zofran at home. She finished her Lortab and is taking ibuprofen now. She states she's been more constipated as well. She is taking some Emy-Colace for this. She was initially diagnosed pancreatitis in 2013, she's had intermittent episodes since then. States her last episode was when she was and 2015, denies any trouble since then. States she's having epigastric and left-sided abdominal pain. She is due to start her menstrual cycles well. She states she's been tolerating liquids okay but hasn't had an appetite for solids. Denies nausea or vomiting. Denies any urinary symptoms or vaginal bleeding or vaginal discharge. History Past Medical History Narrative Medical GERD Pancreatitis Tetanus Vaccination: < 5 Years Influenza Vaccination: No LMP: 03/09/17 : 2 Para: 2 Social History Alcohol Use: No Tobacco Use: No Allergies-Medications (Allergen,Severity, Reaction): Coded Allergies: No Known Allergies (Verified Allergy, Unknown, 04/06/17) Reported Meds & Prescriptions Reported Meds & Active Scripts Active Bentyl (Dicyclomine HCl) 10 Mg Cap 10 Mg PO TID PRN Zofran Odt (Ondansetron Odt) 4 Mg Tab 4 Mg SL Q6HR PRN Famotidine 20 Mg Tab 20 Mg PO BID Creon (Amylase/Lipase/Protease) 24,000-76,000-120,000 Units Cap 1 Cap PO TIDAC 30 Days Gnp Senna Plus 8.6-50 mg (Sennosides-Docusate Sodium) 8.6 Mg-50 Mg Tab 1 Tab PO BID Review of Systems Except as stated in HPI: all other systems reviewed are Neg Physical Exam Narrative GENERAL: Well-appearing 31 year-old woman, appears uncomfortable but nontoxic. No overt dehydration. SKIN: Focused skin assessment warm/dry. ENT: No nasal bleeding or discharge. Mucous membranes pink and moist. NECK: Trachea midline. No JVD. CARDIOVASCULAR: Regular rate and rhythm. No murmur appreciated. RESPIRATORY: No accessory muscle use. Clear to auscultation. Breath sounds equal bilaterally. GASTROINTESTINAL: Abdomen is flat and soft, minimal epigastric tenderness and minimal left-sided abdominal tenderness to palpation. No rebound or guarding. MUSCULOSKELETAL: No obvious deformities. No edema. NEUROLOGICAL: Awake and alert. No obvious cranial nerve deficits. Motor grossly within normal limits. Normal speech. PSYCHIATRIC: Appropriate mood and affect; insight and judgment normal. Data Data Last Documented VS Vital Signs Date Time Temp Pulse Resp B/P (MAP) Pulse Ox O2 Delivery O2 Flow Rate FiO2 04/06/17 08:25 16 04/06/17 08:15 99.0 103 150/71 (97) 100 Orders Orders Complete Blood Count With Diff (04/06/17 08:36) Comprehensive Metabolic Panel (04/06/17 08:36) Lipase (04/06/17 08:36) Iv Access Insert/Monitor (04/06/17 08:36) Ketorolac Inj (Toradol Inj) (04/06/17 08:45) Ondansetron Inj (Zofran Inj) (04/06/17 08:45) Sodium Chlor 0.9% 1000 Ml Inj (Ns 1000 M (04/06/17 08:45) Acetamin-Hydrocod 325-5 Mg ([place] 5-325 (04/06/17 08:45) Ed Discharge Order (04/06/17 10:24) Labs Laboratory Tests Test 04/06/17 08:45 White Blood Count 8.4 TH/MM3 Red Blood Count 3.90 MIL/MM3 Hemoglobin 12.6 GM/DL Hematocrit 36.9 % Mean Corpuscular Volume 94.6 FL Mean Corpuscular Hemoglobin 32.3 PG Mean Corpuscular Hemoglobin Concent 34.2 % Red Cell Distribution Width 12.6 % Platelet Count 225 TH/MM3 Mean Platelet Volume 9.0 FL Neutrophils (%) (Auto) 68.7 % Lymphocytes (%) (Auto) 24.1 % Monocytes (%) (Auto) 6.2 % Eosinophils (%) (Auto) 0.6 % Basophils (%) (Auto) 0.4 % Neutrophils # (Auto) 5.7 TH/MM3 Lymphocytes # (Auto) 2.0 TH/MM3 Monocytes # (Auto) 0.5 TH/MM3 Eosinophils # (Auto) 0.1 TH/MM3 Basophils # (Auto) 0.0 TH/MM3 CBC Comment DIFF FINAL Differential Comment Blood Urea Nitrogen 7 MG/DL Creatinine 0.94 MG/DL Random Glucose 109 MG/DL Total Protein 8.1 GM/DL Albumin 3.7 GM/DL Calcium Level 9.2 MG/DL Alkaline Phosphatase 74 U/L Aspartate Amino Transf (AST/SGOT) 12 U/L Alanine Aminotransferase (ALT/SGPT) 20 U/L Total Bilirubin 0.4 MG/DL Sodium Level 137 MEQ/L Potassium Level 3.8 MEQ/L Chloride Level 105 MEQ/L Carbon Dioxide Level 26.5 MEQ/L Anion Gap 6 MEQ/L Estimat Glomerular Filtration Rate 84 ML/MIN Lipase 191 U/L [facility] Medical Decision Making Medical Screen Exam Complete: Yes Emergency Medical Condition: Yes Interpretation(s) LABS: CBC is unremarkable. CMP generally unremarkable. Lipase normal. Differential Diagnosis Recurrent pancreatitis, constipation, gastritis, other Narrative Course Medical decision making INITIAL: 31 year-old woman presents to the emergency department complaining of ongoing abdominal pain. Looks uncomfortable but nontoxic. Symptoms been ongoing for couple weeks. She is an appointment with GI in about 10 days. She looks well. Benign exam. We'll check screening labs. Avoid parenteral opiates. Reassess. Diagnosis Primary Impression: Abdominal pain Additional Instructions: Continue Bentyl as needed for abdominal pain. Use 1 g acetaminophen 3 times daily also. Use Zofran as a for nausea or vomiting. Follow-up with gastroenterology as scheduled. Return to the emergency department for any new or worsening symptoms. Med/Other Pt SpecificInfo: Prescription(s) given Scripts Dicyclomine (Bentyl) 10 Mg Cap 10 MG PO TID Y for ABDOMINAL CRAMPING, #30 CAP 0 Refills Prov: Hung Doran MD 04/06/17 Ondansetron Odt (Zofran Odt) 4 Mg Tab 4 MG SL Q6HR Y for Nausea/Vomiting, #15 TAB 0 Refills Prov: Hung Doran MD 04/06/17 Disposition: 01 DISCHARGE HOME Condition: Stable Hung Doran MD Apr 06, 2017 08:49
[2017-04-06 09:01] LABS: AUTOMATED NEUTROPHIL # 5.7 TH/MM3 (1.8-7.7); BASOPHIL % 0.4 % (0.0-2.0); EOSINOPHIL # 0.1 TH/MM3 (0-0.4); EOSINOPHIL % 0.6 % (0.0-4.0); HEMATOCRIT 36.9 % (35.0-46.0); HEMO FLAGS DIFF FINAL; LYMPH % 24.1 % (9.0-44.0); MEAN CELL VOLUME 94.6 FL (80.0-100.0); MEAN CORPUSCULAR HEMOGLOBIN 32.3 PG (27.0-34.0); MEAN CORPUSCULAR HGB CONC 34.2 % (32.0-36.0); MONO % 6.2 % (0.0-8.0); NEUT % 68.7 % (16.0-70.0); PLATELET COUNT 225 TH/MM3 (150-450); RED CELL DISTRIBUTION WIDTH 12.6 % (11.6-17.2); WHITE BLOOD COUNT 8.4 TH/MM3 (4.0-11.0)
[2017-04-06 09:28] LABS: ANION GAP 6 MEQ/L (5-15); AST (GOT) 12 U/L (15-37); BICARBONATE 26.5 MEQ/L (21.0-32.0); BLOOD UREA NITROGEN 7 MG/DL (7-18); CHLORIDE 105 MEQ/L (98-107); GLOMERULAR FILTRATION RATE 84 ML/MIN (>89); POTASSIUM 3.8 MEQ/L (3.5-5.1); SODIUM (NA) 137 MEQ/L (136-145)
[2017-04-06 09:37] LABS: ALKALINE PHOSPHATASE 74 U/L (45-117); ALT (GPT) 20 U/L (10-53); TOTAL BILIRUBIN ADULT 0.4 MG/DL (0.2-1.0)
[2017-04-06 09:45] VITALS: RESP 16
[2017-04-06] MEDS ORDERED: ZOFR4TAB3 SL (10:20)
[2017-04-06] MEDS ORDERED: DICY10 PO (10:20)
[2017-04-06 10:31] VITALS: BP 122/83; TEMP 97.8
== END 2017-04-06 10:32 | disposition home or self-care (01) ==
LOC: NEPE 08:14
DX: R10.9 Unspecified abdominal pain (principal); R10.13 Epigastric pain; Z79.899 Other long term (current) drug therapy; K21.9 Gastro-esophageal reflux disease without esophagitis; Z87.19 Personal history of other diseases of the digestive system; K59.00 Constipation, unspecified
CPT/HCPCS: 80053; 83690; 85025; 96361; 96374; 96375; 99284; J1885; J2405; J7030